=== PATIENT | female | born 1985 | race Caucasian/White ===

== ENCOUNTER 2017-08-22 13:47 | Inpatient (IN) | payer MEDICAID, SELFPAY ==
[2017-08-22 13:48] VITALS: BP 142/98; PULSE 97; RESP 17; TEMP 36.1; O2SAT 98; BMI 26.5
--- NOTE | 2017-08-22 13:52 | ED.RN ---
THIS RN SPOKE TO SYLVIA FROM [employer]. REPORTS TO SYLVIA PT ROOM NUMBER AND REQUEST TO BE SEEN FOR [employer] [facility].
[2017-08-22] MEDS: proMETHazine 25 MG/ML Syringe 12.5 MG IV (15:44)
[2017-08-22] MEDS: LORazepam 2 MG/ML Syringe 1 MG IV (15:44)
[2017-08-22] MEDS: 0.9% Normal Saline 1,000 ML 1000 ML IV (15:44)
[2017-08-22 15:47] VITALS: BP 134/97; PULSE 62; RESP 16; O2SAT 99
[2017-08-22 15:47] LABS: Absolute Lymphocyte Count 2.01 X10^3/ul (0.83-4.51); Absolute Neutrophil Count 5.8 X10^3/uL (2.0-7.7); Basophil# 0.02 X10^3/uL; Basophil% 0.2 % (0-1); Eosinophils% 1.2 % (0-5); Hematocrit 42.1 % (37-47); Hemoglobin 13.7 g/dl (12.0-15.0); Lymphocyte # 2.01 X10^3/ul (4.0); Lymphocyte % 23.7 % (19-41); Mean Corp Hgb Conc 32.5 g/gl (32-36); Mean Corpuscular Hgb 28.7 pg (27.0-32.0); Mean Corpuscular Volume 88.1 fL (81-99); Mean Platelet Vol. 11.3 fl (6.2-12.0); Monocyte# 0.55 X10^3/uL; Monocyte% 6.5 % (0-10); Neutrophil # 5.78 X10^3/uL (2.7-7.7); Neutrophil % 68.3 % (47-70); Platelet Count 219 K/mm3 (150-450); RBC Distribution Width CV 14.2 % (11.6-14.6); RBC Distribution Width SD 45.8 fl (35.1-43.9); Red Blood Count 4.78 M/mm3 (4.2-5.4); White Blood Count 8.5 K/mm3 (4.4-11.0)
[2017-08-22 15:49] LABS: POSITIVE COUNT NO; POSITIVE DIFFERENTIAL NO; POSITIVE MORPHOLOGY NO
[2017-08-22 16:03] LABS: AST(SGOT) 55 U/L (15-37); Alanine Aminotransfer ALT/SGPT 102 U/L (13-56); Albumin, Serum 3.1 g/dL (3.2-5.0); Alkaline Phosphatase 110 U/L (45-117); Anion Gap 3 (5-15); BUN 14 mg/dL (7-18); BUN/Creat Ratio 20.4 RATIO (10-20); Bilirubin, Direct 0.07 mg/dL (0.00-0.30); Calcium,Total 8.7 mg/dL (8.5-10.1); Chloride 105 mmol/L (98-107); Creatinine, Serum 0.68 mg/dL (0.55-1.02); EST Glomerular Filtration Rate 105 mL/min (>60); Est Glom Filt Rate - Afr Amer 127 mL/min (>60); Estimated Creatinine Clearance 110.16 ml/min; Globulin 4.7 g/dL (2.2-4.2); Glucose 83 mg/dL (74-106); Potassium 4.4 mmol/L (3.5-5.1); Protein, Total 7.8 g/dL (6.4-8.2); Sodium Level 138 mmol/L (136-145)
[2017-08-22 16:07] VITALS: BMI 26.5
[2017-08-22 16:10] LABS: Alcohol, Blood (Medical)-Serum < 3.0 mg/dL
[2017-08-22 16:17] LABS: Pregnancy, Serum, hCG Quali. NEGATIVE Negative (0-9 Nonpreg)
--- NOTE | 2017-08-22 16:35 | ED.VISSUMM ---
- ER Visit Summary Date of Service: 08/22/17 Chief Complaint: Requesting detox from heroin, meth, and alcohol History of Present Illness: The patient is a 32 F who is requesting detox of heroin, meth, and alcohol. She states that she uses meth every day and her last use was 2 days ago. She used heroin most days and her last use was 4 days ago. She uses alcohol couple days a week and her last use was 4 days ago. She reports nausea, vomiting, diarrhea. She feels chills and restless. She denies any prior seizures from alcohol withdrawal. Physical Examination: Vital signs are unremarkable. Head neck examination is normal. Heart is regular rate and rhythm. Lung sounds are clear. Abdomen is soft nontender. Hypoactive bowel sounds are present. Patient does appear anxious. She is rocking her leg side to side has trouble sitting still. No significant tremor of her hands is noted at this time. Test Results: CBC and chemistry studies are unremarkable. LFTs are significant for an ALT 102 and an AST of 55. EtOH is less than 3. test is negative. Emergency Department Course and Treatment: Patient was very difficult IV access and IV therapy was able to place a midline in the left upper arm. She was seen by Sage Rosa here in the emergency room. They state that she does not currently have active insurance. They requested that we admit her to the hospital for alcohol withdrawal and they will get Medicaid retroactively to cover her drug and alcohol detox. I spoke with the hospitalist. Treatment Plan: [] Disposition: Admit Impression: 1. Alcohol withdrawal 2. Withdrawal from heroin and meth This note was generated with [employer] dictation software. It may contain incorrect words, spelling, and punctuation that were not noted in review of the chart prior to signing ED Disposition - Plan for ED Patient: Chief Complaint: Subst Abuse Referrals: Moon Gordon, [id number]-C [Primary Care Provider] -
--- NOTE | 2017-08-22 16:49 | PCM.HP.STD ---
Problem List (1) Alcohol withdrawal Status: Acute Qualifiers: Complication of substance-induced condition: with unspecified complication Qualified Code(s): F10.239 - Alcohol dependence with withdrawal, unspecified Comment: Nausea and emesis, shakiness (2) Polysubstance abuse Status: Chronic (3) Tobacco dependence Status: Chronic History of Present Illness Date of Admission: 08/22/17 Chief Complaint: Alcohol withdrawal symptoms The patient is a 32 year old F who presented to emergency department requesting emergency detoxification for alcohol withdrawal symptoms. The patient reports heavy use of alcohol over the past year, daily use to include a bottle of wine in the morning, further alcohol during the day. Her last drink was 2 days ago. Symptoms include nausea, shaking, vomiting. Patient endorses polysubstance abuse to include heroin several days out of the week, last 3 days ago, and methamphetamine daily. She endorses some erratic behaviors secondary to methamphetamine. She smokes approximately a pack a day. The patient endorses injection and snorting heroin, sometimes shares needles. She has had no prior HIV or hepatitis testing. The patient is agreeable to HIV and hepatitis testing. The patient reports occasional bright red blood per rectum, and occasional epigastric abdominal pain, last menstrual period was 3 days ago. The patient is single, mother of 2 children ages 6 and 4. The children are currently with her parents. She is unemployed. Patient had prior detoxification for EtOH/heroin 2 years ago at [facility]. She reports no regular aftercare services. Required placement of midline IV secondary to difficult stick. ED evaluation: Afebrile, heart rate 97, blood pressure 142/98, respirations 17, 98% room air CBC unrevealing with normal platelet count, normal hemoglobin, MCV 88 Chemistries are pertinent for encephalitis, AST 55, ALT 102, albumin 3.1, serum negative Every hour level less than 3 ED course: She received 1 L bolus, followed by infusion 150 ML's per hour, Phenergan 12.5 mg IV, and lorazepam 1 mg IV, and is feeling much more comfortable. Patient will be admitted for continuous management of alcohol withdrawal. [] Past Medical History Past Medical History (Chronic Problems): Chronic Problems Polysubstance abuse (Chronic) Tobacco dependence (Chronic) Allergies No Known Allergies Allergy (Verified 08/22/17 13:47) Home Medications: Ambulatory Orders Medication Instructions Recorded NK [NK] 08/22/17 Surgical History: no surgical history Psychiatric History: No pertinent psych hx RECREATION ACTIVITIES COORDINATOR History: No pertinent RECREATION ACTIVITIES COORDINATOR history Smoking Status: Current every day smoker - *Family History Maternal History Items: No pertinent history Paternal History Items: No pertinent history Review of Systems Comment: As per HPI, complains of nausea, jitteriness, anxiety, no fevers chills current GI or complaints, does note occasional left upper quadrant discomfort and occasional blood in stool VTE Information - Inpt Only VTE Present on Admission: No VTE Mechan Device Prophylaxis: SCD's VTE Pharm Prophylaxis ordered?: No Reason prophylaxis not ordered:: Medical Contraindication - low risk patient Patient Problems: Active and Suspected Problems Alcohol withdrawal (Acute) Nausea and emesis, shakiness Subjective: Pleasant patient in no acute distress, feeling improved after ED therapies Objective: Toxic appearing female, alert and oriented ?3 - Physical Exam General: Alert, Oriented x3 HEENT: PERRLA, EOMI, - - No jaundice Oral: Moist Mucosa Neck: Supple, No JVD, Negative Carotid Bruits Lungs: Clear to auscultation Cardiovascular: Regular rate, Regular Rhythm, Normal S1, Normal S2 Abdomen: Bowel Sounds Present, Soft, - - Minimal left upper quadrant tenderness no rebound or guarding Extremities: No edema, - - palpable needle tracts bilateral antecubital, no abscesses Musculoskeletal: No Muscle Wasting Lymphatic: No Cervical, Supraclavicular, or Inguinal Adenopathy Neurological: - - nonfocal Psych/Mental Status: Appropriate Vital Signs Temp Pulse Resp BP Pulse Ox 96.9 F L 62 16 134/97 H 99 08/22/17 13:48 08/22/17 15:47 08/22/17 15:47 08/22/17 15:47 08/22/17 15:47 Oxygen Delivery Method Room Air Weight: 164 lb 7.437 oz Body Mass Index (BMI) 26.5 Laboratory Tests Past 24 Hrs 08/22/17 08/22/17 08/22/17 15:30 15:30 15:30 WBC 8.5 RBC 4.78 Hgb 13.7 Hct 42.1 MCV 88.1 MCH 28.7 MCHC 32.5 RDW 14.2 RDW Differential 45.8 H Plt Count 219 MPV 11.3 Immature Gran % (Auto) 0.100 Neut % (Auto) 68.3 Lymph % (Auto) 23.7 Moca % (Auto) 6.5 Eos % (Auto) 1.2 Baso % (Auto) 0.2 Absolute Neuts (auto) 5.8 Absolute Lymphs (auto) 2.01 Total Counted Not Reportable Sodium 138 Potassium 4.4 Chloride 105 Carbon Dioxide 30.0 Anion Gap 3 L BUN 14 Creatinine 0.68 Estim Creat Clear Calc 110.16 Est GFR (MDRD) Af Amer 127 Est GFR (MDRD) Non-Af 105 BUN/Creatinine Ratio 20.4 H Glucose 83 Calcium 8.7 Total Bilirubin 0.30 Direct Bilirubin 0.07 AST 55 H ALT 102 H Alkaline Phosphatase 110 Total Protein 7.8 Albumin 3.1 L Globulin 4.7 H Serum , Qual Ethyl Alcohol < 3.0 08/22/17 15:30 WBC RBC Hgb Hct MCV MCH MCHC RDW RDW Differential Plt Count MPV Immature Gran % (Auto) Neut % (Auto) Lymph % (Auto) Moca % (Auto) Eos % (Auto) Baso % (Auto) Absolute Neuts (auto) Absolute Lymphs (auto) Total Counted Sodium Potassium Chloride Carbon Dioxide Anion Gap BUN Creatinine Estim Creat Clear Calc Est GFR (MDRD) Af Amer Est GFR (MDRD) Non-Af BUN/Creatinine Ratio Glucose Calcium Total Bilirubin Direct Bilirubin AST ALT Alkaline Phosphatase Total Protein Albumin Globulin Serum , Qual NEGATIVE Ethyl Alcohol Assessment/Plan Active and Suspected Problems Alcohol withdrawal (Acute) Nausea and emesis, shakiness 32-year-old patient with history of polysubstance abuse presents with acute alcohol withdrawal. 1. Alcohol dependence with acute withdrawal 2. Polysubstance use, last heroin 3 days ago, daily methamphetamine 3. Transaminitis 4. Occasional bright red blood per rectum, occasional left upper quadrant discomfort PLAN: Admit Medical stabilization protocol as per orders Supportive medical care IV fluids Regular diet Laboratories for hepatitis B, C, HIV - patient agreeable to same PPI Consultation to [facility] staff for supportive care Right upper quadrant ultrasound Repeat chemistries in a.m. Nicotine patch 14 mg daily
[2017-08-22] MEDS: 0.9% Normal Saline 1,000 ML 150 ML IV (16:52)
[2017-08-22 17:20] VITALS: BP 136/96; PULSE 109; RESP 18; O2SAT 97
[2017-08-22 17:29] LABS: Amphetamine Urine VISTA POSITIVE (<1000 ng/mL); Barbiturate Urine VISTA NEGATIVE (< 200 ng/mL); Benzodiazepine Urine VISTA NEGATIVE (< 200 ng/mL); Cocaine Urine VISTA NEGATIVE (< 300 ng/mL); Ecstacy Urine VISTA NEGATIVE (< 500 ng/mL); Methadone Urine VISTA NEGATIVE (< 300 ng/mL); PCP Urine VISTA NEGATIVE (< 25 ng/mL); THC Urine VISTA POSITIVE (< 50 ng/mL); Vista UDS pH Range 6
[2017-08-22 18:01] LABS: Internal QC Validated? YES +Cl - CLEAR BKGD; Pregnancy, Urine Negative Negative
[2017-08-22 18:13] VITALS: BMI 28.0
[2017-08-22 18:18] VITALS: BP 134/76; PULSE 68; RESP 18; TEMP 36.6
[2017-08-22] MEDS: Dicyclomine 10 MG Capsule 20 MG PO (18:29)
[2017-08-22] MEDS: chlordiazePOXIDE 25 MG Capsule PO (18:29)
[2017-08-22] MEDS: Methocarbamol 750 MG Tablet PO (18:29)
[2017-08-22] MEDS: Pantoprazole Sodium 40 MG Tablet PO (18:29)
[2017-08-22] MEDS: hydrOXYzine PAM 25 MG Capsule 50 MG PO (18:29)
[2017-08-22] MEDS: QUEtiapine 25 MG Tablet PO (18:29)
[2017-08-22] MEDS: cloNIDine HCl 0.1 MG Tablet PO ×2 (18:29→21:12)
[2017-08-22 20:22] LABS: HIV - WCH Non-Reactive (Nonreactive)
[2017-08-22] MEDS: Buprenorphine HCl 2 MG TAB.SUBL SL (21:12)
[2017-08-22 22:00] VITALS: RESP 16
[2017-08-23] VITALS (8 sets, daily range): BP systolic 91–109; BP diastolic 42–64; PULSE 67–88; RESP 16–18; TEMP 36.3–36.9; O2SAT 98
[2017-08-23] MEDS: cloNIDine HCl 0.1 MG Tablet PO ×4 (00:50→21:53)
[2017-08-23] MEDS: Pramipexole Di-HCl 0.25 MG Tablet PO ×2 (00:50→08:39)
[2017-08-23] MEDS: chlordiazePOXIDE 25 MG Capsule PO ×4 (00:50→20:24)
[2017-08-23] MEDS: 0.9% Normal Saline 1,000 ML 100 ML IV ×3 (00:51→21:47)
[2017-08-23] MEDS: Buprenorphine HCl 2 MG TAB.SUBL SL ×3 (06:16→21:47)
--- NOTE | 2017-08-23 07:30 | US_ITS ---
STUDY: ABDOMINAL ULTRASOUND - RIGHT UPPER QUADRANT REASON FOR VISIT: Female, 32 years old. Abnormal liver enzymes. TECHNIQUE: Ultrasound evaluation of the right upper quadrant was performed with real-time and static barnett-scale imaging. TECHNICAL QUALITY: Adequate. COMPARISON: Comparison is made with prior study dated 2015. FINDINGS: Liver: The liver measures 15.0 cm. There is increased echogenicity consistent with fatty infiltration. The bile ducts are within normal limits. There is hepatic color flow. The direction of portal flow is hepatopetal. There is no demonstrated mass lesion. Gallbladder: Normal distended gallbladder. The gallbladder wall measures 2.8 mm. There is a negative sonographic Ramírez's sign. There is no pericholecystic fluid. There are no gallstones. Common Bile Duct (C.B.D.): The common bile duct measures 4.8 mm. Pancreas: Normal size of the head, body and tail of the pancreas. There is normal echogenicity of the pancreas. There is no demonstrated pancreatic mass or cyst. Right Kidney: Normal size of the right kidney. The right kidney measures 11.7 cm x 5.3 cm x 4.8 cm. Normal renal cortex. The right cortex measures 1.7 cm. There is no demonstrated renal mass or cyst. There is no right hydronephrosis. US/Liver IMPRESSION: Fatty infiltration of the liver. Electronically Signed: Mejia Beaulieu MD at 8:51 EDT Tel [phone], Service support ,
--- NOTE | 2017-08-23 07:53 | NURSING ---
Pt taken off of floor with STOCK WORKER to get Liver US
[2017-08-23] MEDS: Pantoprazole Sodium 40 MG Tablet PO (08:34)
[2017-08-23] MEDS: QUEtiapine 25 MG Tablet PO (08:39)
[2017-08-23] MEDS: hydrOXYzine PAM 25 MG Capsule 50 MG PO ×2 (08:39→21:56)
--- NOTE | 2017-08-23 10:11 | PN_ITS ---
<Sonia Ward - Last Filed: 08/23/17 10:11> Patient Problems: Active and Suspected Problems Alcohol withdrawal (Acute) Nausea and emesis, shakiness Subjective: Patient seen and examined. Complains of diarrhea. Denies current nausea, vomiting. Complains of restlessness. Denies other complaints. - Physical Exam General: Alert, Oriented x3, Cooperative, No apparent distress HEENT: Atraumatic, PERRLA, EOMI, Normocephalic Neck: Supple, No JVD, Negative Carotid Bruits Lungs: Clear to auscultation, Normal air movement Cardiovascular: Regular rate, Regular Rhythm, Normal S1, Normal S2, No murmurs Abdomen: Bowel Sounds Present, Soft, Non Tender, Non-Distended Extremities: No clubbing, No cyanosis, No edema, Capillary Refill Less than 3 Seconds Skin: No rashes, No breakdown Musculoskeletal: No Tenderness to Palpation of Joints or Extremities Neurological: Cranial nerves II-XII grossly intact Psych/Mental Status: Normal Affect, Appropriate Vital Signs Temp Pulse Resp BP Pulse Ox 97.6 F L 69 18 91/43 L 98 08/23/17 08:30 08/23/17 08:30 08/23/17 08:30 08/23/17 08:30 08/23/17 05:00 Oxygen Delivery Method Room Air Weight: 78.925 kg Body Mass Index (BMI) 28.0 Intake and Output for Last 24 Hours 08/21/17 08/22/17 08/23/17 23:59 23:59 23:59 Intake Total 2207 / 2207 Balance 2207 / 2207 Laboratory Tests Past 24 Hrs 08/22/17 08/23/17 19:30 06:18 Sodium Cancelled Potassium Cancelled Chloride Cancelled Carbon Dioxide Cancelled Anion Gap Cancelled BUN Cancelled Creatinine Cancelled Estim Creat Clear Calc Cancelled Est GFR (MDRD) Af Amer Cancelled Est GFR (MDRD) Non-Af Cancelled BUN/Creatinine Ratio Cancelled Glucose Cancelled Calcium Cancelled Total Bilirubin Cancelled AST Cancelled ALT Cancelled Alkaline Phosphatase Cancelled Total Protein Cancelled Albumin Cancelled Globulin Cancelled Albumin/Globulin Ratio Cancelled Hepatitis A IgM Ab Pending Hep Bs Antigen Pending Hep B Core IgM Ab Pending Hepatitis C Ab (EIA) Pending Medical Necessity - Tobacco Use Smoking Status: Current every day smoker Assessment/Plan Active and Suspected Problems Alcohol withdrawal (Acute) Nausea and emesis, shakiness 1. Acute opiate withdrawal-medical stabilization per protocol. Tox screen positive for cannabinoids, amphetamines and opiates. Outpatient follow-up at discharge per [facility]. Patient is stable. 2. Acute alcohol withdrawal-medical stabilization per protocol. 3. Tobacco dependence-encourage smoking cessation. Nicotine replacement patch. 4. Alcoholic hepatitis-liver panel elevated on admission. Repeat pending. Hepatitis panel pending. Liver ultrasound showed fatty infiltration of the liver. 5. Previously reported bright red blood per rectum-denies current. Hemoglobin stable. Continue to monitor. DVT prophylaxis-not indicated due to low risk. This patient was seen by TARA Connor under the supervision of Dr. Gloria. <Sasha Gloria - Last Filed: 08/23/17 10:46> - Physical Exam Vital Signs Temp Pulse Resp BP Pulse Ox 97.6 F L 69 18 91/43 L 98 08/23/17 08:30 08/23/17 08:30 08/23/17 08:30 08/23/17 08:30 08/23/17 05:00 Oxygen Delivery Method Room Air Weight: 78.925 kg Body Mass Index (BMI) 28.0 Intake and Output for Last 24 Hours 08/21/17 08/22/17 08/23/17 23:59 23:59 23:59 Intake Total 2207 / 2207 Balance 2207 / 2207 Laboratory Tests Past 24 Hrs 08/22/17 08/23/17 08/23/17 19:30 06:18 10:06 Sodium Cancelled Pending Potassium Cancelled Pending Chloride Cancelled Pending Carbon Dioxide Cancelled Pending Anion Gap Cancelled Pending BUN Cancelled Pending Creatinine Cancelled Pending Estim Creat Clear Calc Cancelled Est GFR (MDRD) Af Amer Cancelled Pending Est GFR (MDRD) Non-Af Cancelled Pending BUN/Creatinine Ratio Cancelled Pending Glucose Cancelled Pending Calcium Cancelled Pending Total Bilirubin Cancelled Pending AST Cancelled Pending ALT Cancelled Pending Alkaline Phosphatase Cancelled Pending Total Protein Cancelled Pending Albumin Cancelled Pending Globulin Cancelled Albumin/Globulin Ratio Cancelled Hepatitis A IgM Ab Pending Hep Bs Antigen Pending Hep B Core IgM Ab Pending Hepatitis C Ab (EIA) Pending Assessment/Plan Patient was seen and examined independently. I agree with the interval history , physical exam and assessment and plan as documented by nurse practitioner, Sonia Ward. Patient complains of feeling hot and cold, has the eighth to move around, feels anxious. Started on nicotine replacement patch with 40 mg. Patient smokes more than 1 pack a day of cigarettes. Will increase nicotine to 21 mg. Patient's vitals are stable, will continue to monitor per [facility] protocol. Code Visit Inpatient E&M: 40108 Subs Hosp L2
[2017-08-23 10:46] LABS: ALB/GLOB Ratio 0.7 RATIO (0.9-2.4); AST(SGOT) 53 U/L (15-37); Alanine Aminotransfer ALT/SGPT 92 U/L (13-56); Albumin, Serum 2.5 g/dL (3.2-5.0); Alkaline Phosphatase 102 U/L (45-117); Anion Gap 6 (5-15); BUN 10 mg/dL (7-18); BUN/Creat Ratio 16.4 RATIO (10-20); Calcium,Total 8.1 mg/dL (8.5-10.1); Chloride 112 mmol/L (98-107); Creatinine, Serum 0.61 mg/dL (0.55-1.02); EST Glomerular Filtration Rate 120 mL/min (>60); Est Glom Filt Rate - Afr Amer 145 mL/min (>60); Globulin 3.8 g/dL (2.2-4.2); Glucose 88 mg/dL (74-106); Protein, Total 6.3 g/dL (6.4-8.2); Sodium Level 143 mmol/L (136-145)
[2017-08-24 02:58] VITALS: BP 112/71; PULSE 71; RESP 16; TEMP 36.6
[2017-08-24] MEDS: chlordiazePOXIDE 25 MG Capsule PO ×3 (03:00→19:46)
[2017-08-24] MEDS: cloNIDine HCl 0.1 MG Tablet PO ×5 (03:00→21:53)
[2017-08-24] MEDS: Pramipexole Di-HCl 0.25 MG Tablet PO (03:06)
[2017-08-24] MEDS: Ondansetron 4 MG/2 ML Vial IV (03:06)
[2017-08-24] MEDS: Buprenorphine HCl 2 MG TAB.SUBL SL ×2 (05:20→12:07)
[2017-08-24 07:07] LABS: HEPATITIS B SURFACE AG Negative (Negative); Hepatitis A IgM Antibody Negative (Negative); Hepatitis B Core AB IgM Negative (Negative)
--- NOTE | 2017-08-24 07:34 | PN_ITS ---
Patient Problems: Active and Suspected Problems Alcohol withdrawal (Acute) Nausea and emesis, shakiness Subjective: Patient was seen and examined. Has hot and cold symptoms. Denies any chest pain but admits to some dizziness. IV fluids are running. Denies any abdominal pain no diarrhea. Objective: Physical Exam General: Alert, Oriented x3, Cooperative, No apparent distress HEENT: Atraumatic, PERRLA, EOMI, Normocephalic Neck: Supple, No JVD, Negative Carotid Bruits Lungs: Clear to auscultation, Normal air movement Cardiovascular: Regular rate, Regular Rhythm, Normal S1, Normal S2, No murmurs Abdomen: Bowel Sounds Present, Soft, Non Tender, Non-Distended Extremities: No clubbing, No cyanosis, No edema, Capillary Refill Less than 3 Seconds Skin: No rashes, No breakdown Musculoskeletal: No Tenderness to Palpation of Joints or Extremities Neurological: Cranial nerves II-XII grossly intact Psych/Mental Status: Normal Affect, Appropriate Vitals/I&O's: Vital Signs Temp Pulse Resp BP Pulse Ox 97.9 F 71 16 112/71 98 08/24/17 02:58 08/24/17 02:58 08/24/17 02:58 08/24/17 02:58 08/23/17 05:00 Oxygen Delivery Method Room Air Weight: 78.9 kg Body Mass Index (BMI) 28.0 Intake and Output for Last 24 Hours 08/22/17 08/23/17 08/24/17 23:59 23:59 23:59 Intake Total 4325 / 4325 2868 / 2868 Balance 4325 / 4325 2868 / 2868 Laboratory Results 08/23/17 10:06: Sodium 143, Potassium 4.0, Chloride 112 H, Carbon Dioxide 25.0, Anion Gap 6, BUN 10, Creatinine 0.61, Estim Creat Clear Calc 122.80, Est GFR ( MDRD) Af Amer 145, Est GFR (MDRD) Non-Af 120, BUN/Creatinine Ratio 16.4, Glucose 88, Calcium 8.1 L, Total Bilirubin 0.40, AST 53 H, ALT 92 H, Alkaline Phosphatase 102, Total Protein 6.3 L, Albumin 2.5 L, Globulin 3.8, Albumin/ Globulin Ratio 0.7 L Current Medications Buprenorphine HCl (Buprenorphine Hcl) 2 mg SL Q8H [facility] PRN Reason: Taper Stop: 08/26/17 00:59 Last Admin: 08/24/17 05:20 Dose: 2 mg Chlordiazepoxide (Librium) 50 mg PO Q8H [facility] PRN Reason: Taper Stop: 08/25/17 19:59 Last Admin: 08/24/17 03:00 Dose: 50 mg Clonidine (Catapres) 0.1 mg PO Q4 [facility] Last Admin: 08/24/17 05:19 Dose: 0.1 mg Dicyclomine HCl (Bentyl) 20 mg PO Q6H PRN PRN PRN Reason: abdominal discomfort Last Admin: 08/22/17 18:29 Dose: 20 mg Hydroxyzine Pamoate (Vistaril Pamoate Capsule) 50 mg PO Q6H PRN PRN PRN Reason: Mild Anxiety (score 1/3) Last Admin: 08/23/17 21:56 Dose: 50 mg Sodium Chloride () 1,000 mls @ 100 mls/hr IV .Q10H [facility] Last Admin: 08/23/17 21:47 Dose: 100 mls/hr Thiamine HCl 200 mg/ Sodium (Chloride) 52 mls @ 200 mls/hr IV DAILY [facility] Last Admin: 08/23/17 09:04 Dose: 200 mls/hr Magnesium Hydroxide (Milk Of Magnesia) 30 ml PO DAILY PRN PRN PRN Reason: Constipation Methocarbamol (Methocarbamol) 750 mg PO Q6H PRN PRN PRN Reason: Muscle Aches Last Admin: 08/22/17 18:29 Dose: 750 mg Nicotine (Nicoderm Cq (Pbkc)) 21 mg TRANSDERM. DAILY [facility] Last Admin: 08/23/17 11:03 Dose: Not Given Ondansetron HCl (Zofran) 4 mg IV Q6 PRN PRN Reason: NAUSEA Last Admin: 08/24/17 03:06 Dose: 4 mg Pantoprazole Sodium (Protonix) 40 mg PO DAILY [facility] Last Admin: 08/23/17 08:34 Dose: 40 mg Pramipexole Dihydrochloride (Mirapex) 0.25 mg PO Q12H PRN PRN PRN Reason: Restless legs Last Admin: 08/24/17 03:06 Dose: 0.25 mg Promethazine HCl (Phenergan Iv) 12.5 mg IV Q6H PRN PRN PRN Reason: NAUSEA/VOMITING Quetiapine Fumarate (Seroquel) 25 mg PO Q6H PRN PRN PRN Reason: Moderate Anxiety (score 2/3) Last Admin: 08/23/17 08:39 Dose: 25 mg Sodium Chloride () 10 - 20 ml IV UD PRN PRN Reason: Midline Flush Medical Necessity - Tobacco Use Smoking Status: Current every day smoker Tobacco Use: Cigarettes Assessment/Plan Active and Suspected Problems Alcohol withdrawal (Acute) Nausea and emesis, shakiness 32-year-old female with past medical history of alcohol, nicotine, heroine and methamphetamine use disorders comes in with withdrawal symptoms and is being managed on the [facility] program. 1. Acute opiate withdrawal-medical stabilization per protocol. Tox screen positive for cannabinoids, amphetamines and opiates. Outpatient follow-up at discharge per [facility] [employer]. Patient is doing very well. 2. Acute alcohol withdrawal, stable, ongoing medical stabilization per protocol. 3. Tobacco dependence, encourage smoking cessation, on Nicotine replacement patch. 4. Alcoholic hepatitis, LFTs are trending down, hepatitis C positive, needs to follow-up in the outpatient, HIV negative, hepatitis B negative, liver ultrasound showed fatty infiltration of the liver. Advised to quit drinking alcohol. 5. Previously reported bright red blood per rectum-none current, stable Hb 6. DVT prophylaxis-not indicated due to low risk. Code Visit Inpatient E&M: 56496 Subs Hosp L2
[2017-08-24] MEDS: 0.9% Normal Saline 1,000 ML 100 ML IV ×2 (08:10→17:36)
[2017-08-24 08:13] VITALS: BP 96/55; PULSE 66; RESP 16; TEMP 36.6
[2017-08-24 08:14] LABS: Hep C Antibodies >11.0 s/co ratio (0.0-0.9)
[2017-08-24] MEDS: Loratadine 10 MG Tablet PO (10:08)
[2017-08-24] MEDS: Pantoprazole Sodium 40 MG Tablet PO (10:09)
[2017-08-24 15:08] VITALS: BP 96/51; PULSE 65; RESP 16; TEMP 36.8
--- NOTE | 2017-08-24 16:54 | CHAPLAIN ---
Type of Pastoral Visit ___ Initial Visit ___ Follow-up Visit ___ On-call Visit ___ General Patient Visit ___ Spiritual Assessment ___ Family Conference ___ Bereavement ___ Rapid Response ___ Code Blue _x__ Other (describe below) Pastoral Care Referral From ___ Patient ___ Family ___ Nurse ___ Physician ___ [employer] ___ Child Welfare Consultant ___ Other (describe below) Sacrament/Intervention ___ Active listening ___ Anointing ___ Alevism ___ Bereavement ___ Communion ___ [place]ia exploration ___ ___ Life review ___ Prayer ___ Reconciliation ___ Sacrament of Sick ___ Supportive presence ___ Wedding ___ Other (describe below) Pastoral Comments offer of support and presence made to patient; pt responds that I am not feeling like I can talk to anyone right now because I've got so much going on in my head; offer made for future support if desired
[2017-08-24 17:30] VITALS: BP 103/69; PULSE 68; RESP 16; TEMP 36.7; O2SAT 100
[2017-08-24 19:40] VITALS: BP 137/57; PULSE 83; RESP 16; TEMP 36.6; O2SAT 100
[2017-08-25 01:46] VITALS: BP 105/60; PULSE 70; RESP 16; TEMP 36.9; O2SAT 100
[2017-08-25] MEDS: Buprenorphine HCl 2 MG TAB.SUBL SL ×2 (01:50→12:43)
[2017-08-25] MEDS: cloNIDine HCl 0.1 MG Tablet PO ×2 (01:50→06:06)
[2017-08-25] MEDS: 0.9% Normal Saline 1,000 ML 100 ML IV (03:21)
--- NOTE | 2017-08-25 07:39 | PCM.DC ---
- Discharge Diagnoses Current Active Problems: Current Active and Chronic Problems Alcohol withdrawal (Acute) Nausea and emesis, shakiness Polysubstance abuse (Chronic) Tobacco dependence (Chronic) Reason(s) for Visit for Discharge Instructions: Polysubstance withdrawal You will use the following diet at home:: Regular Your food should be the consistency of: Regular Your liquids should be the consistency of: Regular/Thin Discharge Activity: Return to Normal Activity Additional Instructions: You are advised to avoid using alcohol, heroin or amphetamines. Allergies/Adverse Reactions: Allergies No Known Allergies Allergy (Verified 08/22/17 13:47) Medications to take at Discharge NK [NK] 08/22/17 Primary Care Physician: Moon Gordon NP-C [Primary Care Provider] - Please follow up with your Primary Care Physician in: within 2 weeks of discharge Proposed Discharge Date: 08/25/17
[2017-08-25 08:29] VITALS: BP 97/54; BP 99/54; BP 99/57; PULSE 68; PULSE 69; PULSE 80
[2017-08-25 08:34] VITALS: BP 99/54; PULSE 80; RESP 16; TEMP 36.6
[2017-08-25] MEDS: chlordiazePOXIDE 25 MG Capsule PO (08:39)
[2017-08-25] MEDS: Pantoprazole Sodium 40 MG Tablet PO (08:42)
[2017-08-25] MEDS: Loratadine 10 MG Tablet PO (08:42)
--- NOTE | 2017-08-25 08:52 | PCM.DC.SUM ---
Discharge Date and Diagnosis - Problem List Patient Problems: Active and Suspected Problems Alcohol withdrawal (Acute) Nausea and emesis, shakiness Date of Admission: 08/22/17 Date of Discharge: 08/25/17 - Primary Discharge Diagnosis Active and Suspected Problems Alcohol withdrawal (Acute) Nausea and emesis, shakiness Acute heroin withdrawal Acute amphetamine withdrawal - Secondary Discharge Diagnosis Chronic Problems Polysubstance abuse (Chronic) Tobacco dependence (Chronic) Hospital Course and Treatment Imaging Results: Clinical Impression(s) from Imaging Studies Liver Ultrasound 08/23/17 07:30 IMPRESSION: Fatty infiltration of the liver. Electronically Signed: Mejia Beaulieu MD at 8:51 EDT Tel [phone], Service support , None Operations: None Procedures: None Summary of Care Provided: 32-year-old female with past medical history of alcohol, nicotine, heroine and methamphetamine use disorders comes in with withdrawal symptoms and managed on the [employer] program. 1. Acute opiate withdrawal-medical stabilization per protocol. Tox screen positive for cannabinoids, amphetamines and opiates. Outpatient follow-up at discharge per [facility] 2. Acute alcohol withdrawal, stable, ongoing medical stabilization per protocol. 3. Tobacco dependence, encourage smoking cessation, on Nicotine replacement patch. 4. Alcoholic hepatitis, LFTs are trending down, hepatitis C positive, needs to follow-up in the outpatient, HIV negative, hepatitis B negative, liver ultrasound showed fatty infiltration of the liver. Advised to quit drinking alcohol. 5. Previously reported bright red blood per rectum-none current, stable Hb Discharge Diet: No Restrictions Discharge Activity: Return to Normal Activity Home Medications: Medications to take at Discharge NK [NK] 08/22/17 Primary Care Physician: Moon Gordon NP-C [Primary Care Provider] - Please follow up with your Primary Care Physician in: within 2 weeks of discharge Disposition: Home Minutes spent on discharge:: 25 Patient Condition:: Stable Medical Necessity - Tobacco Use Smoking Status: Current every day smoker Tobacco Use: Cigarettes Meaningful Use Info Meaningful Use Diagnoses (Choose all that apply): None applicable Code Visit Inpatient E&M: 97538 Disch Hosp
[2017-08-25] MEDS: Sodium Chloride 0.65% 1 SPRAY SPRAY.BTL NASAL (09:58)
[2017-08-25 13:51] VITALS: BP 104/61; PULSE 77; RESP 16; TEMP 36.8
== END 2017-08-25 17:38 | disposition home or self-care (01) | DRG 434 ==
LOC: ED 15:45 → MS2 17:22
PROVIDERS: Admitting Provider Internal Medicine; Emergency Provider Emergency Medicine; Family Provider Nurse Practitioner Family; PCP Nurse Practitioner Family; Visit Provider Internal Medicine
DX: F10.239 Alcohol dependence with withdrawal, unspecified (principal); B19.20 Unspecified viral hepatitis C without hepatic coma; F11.23 Opioid dependence with withdrawal; K70.10 Alcoholic hepatitis without ascites; K70.0 Alcoholic fatty liver; K62.5 Hemorrhage of anus and rectum; F15.23 Other stimulant dependence with withdrawal; Y90.0 Blood alcohol level of less than 20 mg/100 ml; F17.210 Nicotine dependence, cigarettes, uncomplicated; R10.12 Left upper quadrant pain
CPT/HCPCS: 36415; 76705; 80048; 80053; 80074; 80076; 80307; 80320; 81025; 84703; 85025; 86703; 97802; 99283; 99406; J7030; G0480; J2405; J3490

== ENCOUNTER 2018-11-10 17:17 | Inpatient (IN) | payer MEDICAID, SELFPAY ==
[2018-11-10 17:18] VITALS: BP 148/84; PULSE 97; RESP 18; TEMP 35.6; O2SAT 99; BMI 35.6
[2018-11-10] MEDS: proMETHazine 25 MG/ML Syringe 12.5 MG IV (18:39)
[2018-11-10] MEDS: 0.9% Normal Saline 1,000 ML 150 ML IV (18:39)
[2018-11-10 18:47] LABS: Absolute Lymphocyte Count 2.49 X10^3/ul (0.83-4.51); Absolute Neutrophil Count 4.4 X10^3/uL (2.0-7.7); Basophil# 0.02 X10^3/uL; Basophil% 0.3 % (0-1); Eosinophil# 0.15 X10^3/uL; Eosinophils% 1.9 % (0-5); Hematocrit 39.5 % (37-47); Hemoglobin 13.5 g/dl (12.0-15.0); Lymphocyte # 2.49 X10^3/ul (4.0); Lymphocyte % 31.6 % (19-41); Mean Corp Hgb Conc 34.2 g/gl (32-36); Mean Corpuscular Volume 87.8 fL (81-99); Mean Platelet Vol. 12.1 fl (6.2-12.0); Monocyte# 0.77 X10^3/uL; Monocyte% 9.8 % (0-10); Neutrophil # 4.42 X10^3/uL (2.7-7.7); Neutrophil % 56.1 % (47-70); Platelet Count 143 K/mm3 (150-450); RBC Distribution Width CV 13.7 % (11.6-14.6); RBC Distribution Width SD 43.4 fl (35.1-43.9); White Blood Count 7.9 K/mm3 (4.4-11.0)
[2018-11-10 18:50] LABS: POSITIVE COUNT NO; POSITIVE DIFFERENTIAL NO; POSITIVE MORPHOLOGY NO
[2018-11-10 19:01] LABS: AST(SGOT) 49 U/L (15-37); Alanine Aminotransfer ALT/SGPT 90 U/L (13-56); Albumin, Serum 3.2 g/dL (3.2-5.0); Alkaline Phosphatase 78 U/L (45-117); Anion Gap 2 (5-15); BUN 19 mg/dL (7-18); BUN/Creat Ratio 24.8 RATIO (10-20); Bilirubin, Direct 0.14 mg/dL (0.00-0.30); Calcium,Total 8.6 mg/dL (8.5-10.1); Chloride 104 mmol/L (98-107); Creatinine, Serum 0.77 mg/dL (0.55-1.02); EST Glomerular Filtration Rate 91 mL/min (>60); Est Glom Filt Rate - Afr Amer 111 mL/min (>60); Estimated Creatinine Clearance 96.37 ml/min; Globulin 3.8 g/dL (2.2-4.2); Glucose 84 mg/dL (74-106); Potassium 4.3 mmol/L (3.5-5.1); Sodium Level 136 mmol/L (136-145)
[2018-11-10 19:25] VITALS: BMI 35.7
--- NOTE | 2018-11-10 19:46 | ED.DCSUM_ITS ---
- ER Visit Summary Date of Service: 11/10/18 Chief Complaint: Requesting detox History of Present Illness: The patient is a 33 F who is here requesting detox to the [facility] program. She uses heroin, meth, and alcohol and is requesting detox from all. She states she does use heroin daily in IV form and her last use was approximate 26 hours ago. Similar findings from meth. Alcohol she states she is lately been using every day. She drinks whiskey 2 or 3 times a day in a mixed drink. Last use was a couple days ago. Patient was in [facility] in August 2017 and states she was also in a rehab in [facility] in September of this year. She states after the program at [facility] here she had been sober for a year before drinking again. Physical Examination: Vital signs unremarkable. Patient sitting upright in bed. She is anxious and fidgets in her bed. Heart is regular rate and rhythm. Lung sounds clear. Abdomen is soft nontender. Skin examination reveals no focal abscess from prior injections. Neuro exam reveals that she is agitated and anxious. Test Results: CBC and chemistry studies unremarkable. LFTs significant for an ALT of 90 and AST of 49. EtOH is 10. Urinalysis is unremarkable. Urine tox is positive for amphetamines. Emergency Department Course and Treatment: Patient was given IV fluids and Phenergan here. Cina score is 16 and CIWA score is 29. Will speak with hospitalist regarding admission for [facility] protocol. Treatment Plan: [] Disposition: Admit Impression: Alcohol and narcotic withdrawal This note was generated with [employer] dictation software. It may contain incorrect words, spelling, and punctuation that were not noted in review of the chart prior to signing ED Disposition - Plan for ED Patient: Referrals: Moon Gordon, [id number] [Primary Care Provider] -
[2018-11-10 20:13] LABS: Bacteria 0 SEEN /hpf (None Seen); Mucous, Urine 0 SEEN /hpf (<or=2+); Red Blood Cells-Urine 0 SEEN /hpf (0-5)
[2018-11-10 20:33] LABS: Color, Urine Yellow (Yellow); Glucose, Dipstick Normal (Normal); Ketone-Dipstick Negative (Negative); Leukocyte Esterase-Dipstick Negative /ul (Negative); Nitrite-Dipstick Negative (Negative); Occult Blood-Urine Negative /ul (Negative); Protein-Dipstick Negative (Negative); Specific Gravity, Urine 1.015 (1.002-1.030); Urine Bilirubin Dipstick Negative (Negative); Urine Clarity Clear (Clear); Urine Urobilinogen Normal (Normal); Urine pH 6.5 (5.0 - 8.0)
[2018-11-10 20:37] LABS: Squamous Epithelial Cells - UA 5-10 SEEN /hpf (5-10); White Blood Cells 0-5 SEEN /hpf (0-5)
[2018-11-10 20:48] LABS: Amphetamine Urine VISTA POSITIVE (<1000 ng/mL); Barbiturate Urine VISTA NEGATIVE (< 200 ng/mL); Benzodiazepine Urine VISTA NEGATIVE (< 200 ng/mL); Cocaine Urine VISTA NEGATIVE (< 300 ng/mL); Ecstacy Urine VISTA NEGATIVE (< 500 ng/mL); Methadone Urine VISTA NEGATIVE (< 300 ng/mL); PCP Urine VISTA NEGATIVE (< 25 ng/mL); THC Urine VISTA NEGATIVE (< 50 ng/mL); Vista UDS pH Range 6
[2018-11-10] MEDS: LORazepam 2 MG/ML Syringe 1 MG IV (21:51)
[2018-11-10 21:52] VITALS: BP 111/79; PULSE 64; RESP 18
--- NOTE | 2018-11-10 21:59 | HP.PCM_ITS ---
Problem List (1) Alcohol withdrawal Status: Acute Qualifiers: Complication of substance-induced condition: with unspecified complication Qualified Code(s): F10.239 - Alcohol dependence with withdrawal, unspecified Comment: Nausea and emesis, shakiness (2) Polysubstance abuse Status: Acute (3) Tobacco dependence Status: Chronic History of Present Illness Date of Admission: 11/11/18 Chief Complaint: Withdrawal symptoms The patient is a 33 year old F with a significant history of alcohol dependence and abuse; heroine dependence and abuse and other drugs who presented because of withdrawal symptoms. She reports her symptoms as depression; tremors; restlessness; feeling cold; irritability; and nausea without vomiting. Further she has no nausea. Patient reports shooting heroine in her arms. She reports drinking alcohol. A few days ago she attempted to stop her drug habit she tried detoxification with gabapentin; Percocet and Flexeril. Also she reports shooting methamphetamine and using crack and cocaine. Reportedly she been using 3 mixed drinks of alcohol a day. She describes her mixed drink as whiskey mixed with 7-Up or Sprite. Last time she drank was about 2 and half days. Last time he used heroin was about 24 hours prior to presentation. [facility]. Past Medical History Past Medical History (Chronic Problems): Chronic Problems Tobacco dependence (Chronic) Allergies No Known Allergies Allergy (Verified 08/22/17 13:47) Home Medications: Ambulatory Orders Medication Instructions Recorded NK 08/22/17 Surgical History: tonsillectomy, - - 3 C-sections; teeth extraction Psychiatric History: - - Drug use Lives: With Family Smoking Status: Current some day smoker Tobacco Use: Cigarettes, Vapor - *Family History Maternal History Items: Cancer - Breast Paternal History Items: Cancer, Diabetes Review of Systems Constitutional: Reports: Chills. Denies: Fever, Weight Change HEENT: Reports: Head Aches. Denies: Sinus Congestion, Sinus Drainage Cardiovascular: Denies: Chest Pain, Palpitations Respiratory: Denies: Cough, Shortness of breath at rest, Sputum production Gastrointestinal: Reports: Nausea. Denies: Abdominal Pain, Vomiting Genitourinary: Denies: Dysuria Musculoskeletal: Reports: Muscle pain. Denies: Joint Pain, Joint Tenderness Skin: Denies: Rash, Wounds Neurological: Denies: Numbness, Tingling, Focal weakness Psychiatric: Reports: Depression. Denies: Homicidal Ideations, Suicidal Ideations Hematologic/ Lymphatic: Denies: Easy Bruising, Easy Bleeding VTE Information - Inpt Only VTE Present on Admission: No VTE Mechan Device Prophylaxis: None VTE Pharm Prophylaxis ordered?: No Reason prophylaxis not ordered:: Treatment Not Indicated - Low risk, not ind icated - Physical Exam General: Alert, Oriented x3, Cooperative, - - Noted to be moving legs in the bed. HEENT: Atraumatic, PERRLA, EOMI, Normocephalic Neck: Supple, No JVD, Negative Carotid Bruits Lungs: Clear to auscultation, Normal air movement Cardiovascular: Regular rate, No murmurs Abdomen: Bowel Sounds Present, Soft, Non Tender Extremities: No edema, Capillary Refill Less than 3 Seconds Skin: No rashes, No breakdown Musculoskeletal: No Tenderness to Palpation of Joints or Extremities Neurological: Cranial nerves II-XII grossly intact Psych/Mental Status: Anxious Vital Signs Temp Pulse Resp BP Pulse Ox 96.1 F L 64 18 111/79 99 11/10/18 17:18 11/10/18 21:52 11/10/18 21:52 11/10/18 21:52 11/10/18 17:18 Oxygen Delivery Method Room Air Weight: 100.2 kg Body Mass Index (BMI) 35.6 Laboratory Tests Past 24 Hrs 11/10/18 11/10/18 11/10/18 18:32 18:32 18:32 WBC 7.9 RBC 4.50 Hgb 13.5 Hct 39.5 MCV 87.8 MCH 30.0 MCHC 34.2 RDW 13.7 RDW Differential 43.4 Plt Count 143 L MPV 12.1 H Immature Gran % (Auto) 0.300 Neut % (Auto) 56.1 Lymph % (Auto) 31.6 [place] % (Auto) 9.8 Eos % (Auto) 1.9 Baso % (Auto) 0.3 Absolute Neuts (auto) 4.4 Absolute Lymphs (auto) 2.49 Total Counted Not Reportable Sodium 136 Potassium 4.3 Chloride 104 Carbon Dioxide 30.0 Anion Gap 2 L BUN 19 H Creatinine 0.77 Estim Creat Clear Calc 96.37 Est GFR (MDRD) Af Amer 111 Est GFR (MDRD) Non-Af 91 BUN/Creatinine Ratio 24.8 H Glucose 84 Calcium 8.6 Total Bilirubin 0.40 Direct Bilirubin 0.14 AST 49 H ALT 90 H Alkaline Phosphatase 78 Total Protein 7.0 Albumin 3.2 Globulin 3.8 Urine Color Urine Clarity Urine pH Ur Specific [place] Urine Protein Urine Glucose (UA) Urine Ketones Urine Occult Blood Urine Nitrite Urine Bilirubin Urine Urobilinogen Ur Leukocyte Esterase Urine RBC Urine WBC Ur Squamous Epith Cells Urine Bacteria Urine Mucus Urine Opiates Screen Urine Methadone Screen Ur Barbiturates Screen Ur Phencyclidine Scrn Ur Amphetamines Screen U Methamphetamin-MDMA U Benzodiazepines Scrn Urine Cocaine Screen U Cannabinoids Screen Ur Drug Screen Comment Ethyl Alcohol 10.0 11/10/18 11/10/18 19:35 19:35 WBC RBC Hgb Hct MCV MCH MCHC RDW RDW Differential Plt Count MPV Immature Gran % (Auto) Neut % (Auto) Lymph % (Auto) [place] % (Auto) Eos % (Auto) Baso % (Auto) Absolute Neuts (auto) Absolute Lymphs (auto) Total Counted Sodium Potassium Chloride Carbon Dioxide Anion Gap BUN Creatinine Estim Creat Clear Calc Est GFR (MDRD) Af Amer Est GFR (MDRD) Non-Af BUN/Creatinine Ratio Glucose Calcium Total Bilirubin Direct Bilirubin AST ALT Alkaline Phosphatase Total Protein Albumin Globulin Urine Color Yellow Urine Clarity Clear Urine pH 6.5 Ur Specific [place] 1.015 Urine Protein Negative Urine Glucose (UA) Normal Urine Ketones Negative Urine Occult Blood Negative Urine Nitrite Negative Urine Bilirubin Negative Urine Urobilinogen Normal Ur Leukocyte Esterase Negative Urine RBC 0 SEEN Urine WBC 0-5 SEEN Ur Squamous Epith Cells 5-10 SEEN Urine Bacteria 0 SEEN Urine Mucus 0 SEEN Urine Opiates Screen NEGATIVE Urine Methadone Screen NEGATIVE Ur Barbiturates Screen NEGATIVE Ur Phencyclidine Scrn NEGATIVE Ur Amphetamines Screen POSITIVE H U Methamphetamin-MDMA NEGATIVE U Benzodiazepines Scrn NEGATIVE Urine Cocaine Screen NEGATIVE U Cannabinoids Screen NEGATIVE Ur Drug Screen Comment Ethyl Alcohol Assessment/Plan All Active Problems Alcohol withdrawal (Acute) Polysubstance abuse (Acute) The patient is a 33 year old F with a significant history of alcohol dependence and abuse; heroine dependence and abuse and other drugs who presented because of withdrawal symptoms. Alcohol Dependence and Abuse Will put patient on Librium protocol and other supportive medications including methocarbamol and Mirapex. Thiamine; multivitamins and folic acid. [facility] consulted. Patient was counseled Polysubstance dependence and withdrawal including narcotic cocaine gabapentin and Flexeril. Urine drug screen showed amphetamines. Will use Librium protocol and other supportive medications as above. Tobacco abuse Counseled He smokes on some days and tobacco part was not indicated. DVT prophylaxis Low risk; ambulate Code Visit Inpatient E&M: 31495 Init Hosp L3
[2018-11-10 23:58] VITALS: BMI 35.4
[2018-11-11] VITALS (11 sets, daily range): BP systolic 109–125; BP diastolic 62–70; PULSE 58–75; RESP 18; TEMP 36.6–37; O2SAT 97–100
[2018-11-11] MEDS: Methocarbamol 750 MG Tablet PO ×3 (00:17→15:43)
[2018-11-11] MEDS: chlordiazePOXIDE 25 MG Capsule PO ×4 (00:17→18:44)
[2018-11-11] MEDS: Acetaminophen 325 MG Tablet 650 MG PO ×3 (00:17→15:43)
[2018-11-11] MEDS: Ondansetron 4 MG/2 ML Vial IV ×2 (00:24→18:46)
[2018-11-11] MEDS: Multivitamins,Therapeutic Tablet 1 TABLET PO (08:05)
[2018-11-11] MEDS: Folic Acid 1 MG Tablet PO (08:05)
[2018-11-11] MEDS: Thiamine Hydrochloride 100 MG Tablet PO (08:05)
[2018-11-11] MEDS: hydrOXYzine PAM 25 MG Capsule 50 MG PO ×2 (08:05→15:44)
[2018-11-11] MEDS: Pramipexole Di-HCl 0.25 MG Tablet PO (11:58)
--- NOTE | 2018-11-11 16:12 | PCM.PROGNOTE ---
Subjective: The patient is a 33-year-old female with a past medical history of alcohol dependence, hepatitis C, polysubstance abuse, obesity and tobacco dependence who presented to the emergency department at [facility] on 11/11/2018 requesting admission to the [facility] for medical stabilization for acute opiate and alcohol withdrawal. She also uses methamphetamine, crack and cocaine. Drinks She thinks her withdrawal sx are getting worse. daily and admits to 2-3 times a day having a mixed drink with whiskey. She stated her last alcohol use was a few days prior to presentation to the emergency room. She has previously been admitted to the [facility] in August 2017 and was sober for a year. She has also been in rehab in [facility] in September 2018. Her last use of heroin was approximately 26 hours prior to presenting to the emergency room. She complained of murmurs, restlessness, chills, irritability, nausea. CBC was remarkable for a low platelet count at 143,000. AST and ALT were mildly elevated and the bilirubin and alkaline phosphatase were within normal limits. Urine drug screen was positive for amphetamines. She was admitted to the hospital and started on a Librium taper. She was not placed on Suboxone. The patient was seen independently and in conjunction with Sonia Ward NP. She is complaining of anxiety, nausea and sweating. Objective: PHYSICAL EXAM: GENERAL: alert, oriented X 3, Cooperative, NAD ORAL: Dry mucosa, no mucosal lesions NECK: No JVD, supple, trachea midline LUNGS: CTA, symmetric chest expansion HEART: RRR, Normal S1 and S2, no rub, no gallop ABDOMEN: soft, NT, ND, BS present, no guarding with palpation EXTREMITIES: no edema, no cyanosis, no calf tenderness SKIN: No rashes, no breakdown NEUROLOGIC: no focal neurologic deficits PSYCH: appropriate, anxious - Physical Exam Vital Signs Temp Pulse Resp BP Pulse Ox 98.2 F 75 18 111/62 99 11/11/18 15:44 11/11/18 15:44 11/11/18 15:44 11/11/18 15:44 11/11/18 15:42 Oxygen Delivery Method Room Air Weight: 219 lb 9.286 oz Body Mass Index (BMI) 35.4 Intake and Output for Last 24 Hours 11/09/18 11/10/18 11/11/18 23:59 23:59 23:59 Intake Total 360 / 360 Balance 360 / 360 Laboratory Tests Past 24 Hrs 11/10/18 11/10/18 11/10/18 18:32 18:32 18:32 WBC 7.9 RBC 4.50 Hgb 13.5 Hct 39.5 MCV 87.8 MCH 30.0 MCHC 34.2 RDW 13.7 RDW Differential 43.4 Plt Count 143 L MPV 12.1 H Immature Gran % (Auto) 0.300 Neut % (Auto) 56.1 Lymph % (Auto) 31.6 [place] % (Auto) 9.8 Eos % (Auto) 1.9 Baso % (Auto) 0.3 Absolute Neuts (auto) 4.4 Absolute Lymphs (auto) 2.49 Total Counted Not Reportable Sodium 136 Potassium 4.3 Chloride 104 Carbon Dioxide 30.0 Anion Gap 2 L BUN 19 H Creatinine 0.77 Estim Creat Clear Calc 96.37 Est GFR (MDRD) Af Amer 111 Est GFR (MDRD) Non-Af 91 BUN/Creatinine Ratio 24.8 H Glucose 84 Calcium 8.6 Total Bilirubin 0.40 Direct Bilirubin 0.14 AST 49 H ALT 90 H Alkaline Phosphatase 78 Total Protein 7.0 Albumin 3.2 Globulin 3.8 Urine Color Urine Clarity Urine pH Ur Specific [place] Urine Protein Urine Glucose (UA) Urine Ketones Urine Occult Blood Urine Nitrite Urine Bilirubin Urine Urobilinogen Ur Leukocyte Esterase Urine RBC Urine WBC Ur Squamous Epith Cells Urine Bacteria Urine Mucus Urine Opiates Screen Urine Methadone Screen Ur Barbiturates Screen Ur Phencyclidine Scrn Ur Amphetamines Screen U Methamphetamin-MDMA U Benzodiazepines Scrn Urine Cocaine Screen U Cannabinoids Screen Ur Drug Screen Comment Ethyl Alcohol 10.0 11/10/18 11/10/18 19:35 19:35 WBC RBC Hgb Hct MCV MCH MCHC RDW RDW Differential Plt Count MPV Immature Gran % (Auto) Neut % (Auto) Lymph % (Auto) [place] % (Auto) Eos % (Auto) Baso % (Auto) Absolute Neuts (auto) Absolute Lymphs (auto) Total Counted Sodium Potassium Chloride Carbon Dioxide Anion Gap BUN Creatinine Estim Creat Clear Calc Est GFR (MDRD) Af Amer Est GFR (MDRD) Non-Af BUN/Creatinine Ratio Glucose Calcium Total Bilirubin Direct Bilirubin AST ALT Alkaline Phosphatase Total Protein Albumin Globulin Urine Color Yellow Urine Clarity Clear Urine pH 6.5 Ur Specific [place] 1.015 Urine Protein Negative Urine Glucose (UA) Normal Urine Ketones Negative Urine Occult Blood Negative Urine Nitrite Negative Urine Bilirubin Negative Urine Urobilinogen Normal Ur Leukocyte Esterase Negative Urine RBC 0 SEEN Urine WBC 0-5 SEEN Ur Squamous Epith Cells 5-10 SEEN Urine Bacteria 0 SEEN Urine Mucus 0 SEEN Urine Opiates Screen NEGATIVE Urine Methadone Screen NEGATIVE Ur Barbiturates Screen NEGATIVE Ur Phencyclidine Scrn NEGATIVE Ur Amphetamines Screen POSITIVE H U Methamphetamin-MDMA NEGATIVE U Benzodiazepines Scrn NEGATIVE Urine Cocaine Screen NEGATIVE U Cannabinoids Screen NEGATIVE Ur Drug Screen Comment Ethyl Alcohol Medical Necessity - Tobacco Use Smoking Status: Current some day smoker Tobacco Use: Cigarettes, Vapor Assessment/Plan All Active Problems Alcohol withdrawal (Acute) Polysubstance abuse (Acute) Impressions 1. Acute opiate withdrawal - Pt wuit using heroin 26 hours prior to presenting to the ED but was taking Percocet 2. Narcotic dependence 3. Alcohol dependence 4. Tobacco dependence 5. Polysubstance abuse 6. Hepatitis C 7. Obesity Start a Suboxone taper and continue Librium taper She will be seen by Sage Rosa on Tuesday and plans for discharge will be discussed. Code Visit Inpatient E&M: 09374 Subs Hosp L2
[2018-11-11 17:58] LABS: Internal QC Validated? YES +Cl - CLEAR BKGD; Pregnancy, Urine Negative Negative
--- NOTE | 2018-11-11 18:12 | PCM.PROGNOTE ---
Subjective: Patient seen and examined. Complains of anxiety, nausea, diaphoresis. Feels her withdrawal symptoms are increasing this evening. - Physical Exam General: Alert, Oriented x3, Cooperative HEENT: Atraumatic, PERRLA, EOMI, Normocephalic Oral: Dry Mucosa Neck: Supple, No JVD, Negative Carotid Bruits Lungs: Clear to auscultation, Normal air movement Cardiovascular: Regular rate, Regular Rhythm, Normal S1, Normal S2, No murmurs Abdomen: Bowel Sounds Present, Soft, Non Tender, Non-Distended, Obese Extremities: No clubbing, No cyanosis, No edema, Capillary Refill Less than 3 Seconds Skin: No rashes, No breakdown Musculoskeletal: No Tenderness to Palpation of Joints or Extremities Neurological: Cranial nerves II-XII grossly intact, Neuro grossly intact Psych/Mental Status: Anxious Vital Signs Temp Pulse Resp BP Pulse Ox 98.2 F 75 18 111/62 99 11/11/18 15:44 11/11/18 15:44 11/11/18 15:44 11/11/18 15:44 11/11/18 15:42 Oxygen Delivery Method Room Air Weight: 219 lb 9.286 oz Body Mass Index (BMI) 35.4 Intake and Output for Last 24 Hours 11/09/18 11/10/18 11/11/18 23:59 23:59 23:59 Intake Total 720 / 720 Balance 720 / 720 Laboratory Tests Past 24 Hrs 11/10/18 11/10/18 11/10/18 18:32 18:32 18:32 WBC 7.9 RBC 4.50 Hgb 13.5 Hct 39.5 MCV 87.8 MCH 30.0 MCHC 34.2 RDW 13.7 RDW Differential 43.4 Plt Count 143 L MPV 12.1 H Immature Gran % (Auto) 0.300 Neut % (Auto) 56.1 Lymph % (Auto) 31.6 [place] % (Auto) 9.8 Eos % (Auto) 1.9 Baso % (Auto) 0.3 Absolute Neuts (auto) 4.4 Absolute Lymphs (auto) 2.49 Total Counted Not Reportable Sodium 136 Potassium 4.3 Chloride 104 Carbon Dioxide 30.0 Anion Gap 2 L BUN 19 H Creatinine 0.77 Estim Creat Clear Calc 96.37 Est GFR (MDRD) Af Amer 111 Est GFR (MDRD) Non-Af 91 BUN/Creatinine Ratio 24.8 H Glucose 84 Calcium 8.6 Total Bilirubin 0.40 Direct Bilirubin 0.14 AST 49 H ALT 90 H Alkaline Phosphatase 78 Total Protein 7.0 Albumin 3.2 Globulin 3.8 Urine Color Urine Clarity Urine pH Ur Specific [place] Urine Protein Urine Glucose (UA) Urine Ketones Urine Occult Blood Urine Nitrite Urine Bilirubin Urine Urobilinogen Ur Leukocyte Esterase Urine RBC Urine WBC Ur Squamous Epith Cells Urine Bacteria Urine Mucus Urine Test Urine Opiates Screen Urine Methadone Screen Ur Barbiturates Screen Ur Phencyclidine Scrn Ur Amphetamines Screen U Methamphetamin-MDMA U Benzodiazepines Scrn Urine Cocaine Screen U Cannabinoids Screen Ur Drug Screen Comment Ethyl Alcohol 10.0 11/10/18 11/10/18 11/10/18 19:35 19:35 19:35 WBC RBC Hgb Hct MCV MCH MCHC RDW RDW Differential Plt Count MPV Immature Gran % (Auto) Neut % (Auto) Lymph % (Auto) [place] % (Auto) Eos % (Auto) Baso % (Auto) Absolute Neuts (auto) Absolute Lymphs (auto) Total Counted Sodium Potassium Chloride Carbon Dioxide Anion Gap BUN Creatinine Estim Creat Clear Calc Est GFR (MDRD) Af Amer Est GFR (MDRD) Non-Af BUN/Creatinine Ratio Glucose Calcium Total Bilirubin Direct Bilirubin AST ALT Alkaline Phosphatase Total Protein Albumin Globulin Urine Color Yellow Urine Clarity Clear Urine pH 6.5 Ur Specific [place] 1.015 Urine Protein Negative Urine Glucose (UA) Normal Urine Ketones Negative Urine Occult Blood Negative Urine Nitrite Negative Urine Bilirubin Negative Urine Urobilinogen Normal Ur Leukocyte Esterase Negative Urine RBC 0 SEEN Urine WBC 0-5 SEEN Ur Squamous Epith Cells 5-10 SEEN Urine Bacteria 0 SEEN Urine Mucus 0 SEEN Urine Test Negative Urine Opiates Screen NEGATIVE Urine Methadone Screen NEGATIVE Ur Barbiturates Screen NEGATIVE Ur Phencyclidine Scrn NEGATIVE Ur Amphetamines Screen POSITIVE H U Methamphetamin-MDMA NEGATIVE U Benzodiazepines Scrn NEGATIVE Urine Cocaine Screen NEGATIVE U Cannabinoids Screen NEGATIVE Ur Drug Screen Comment Ethyl Alcohol Medical Necessity - Tobacco Use Smoking Status: Current some day smoker Tobacco Use: Cigarettes, Vapor Assessment/Plan All Active Problems Alcohol withdrawal (Acute) Polysubstance abuse (Acute) 1. Acute alcohol withdrawal on chronic alcohol dependence-medical stabilization per [facility] protocol. Alcohol level 10 on admission. Thiamine, multivitamin, folic acid supplementation. Librium taper. PRN regimen for somatic complaints. 2. Polysubstance abuse-urine tox positive for methamphetamines. 3. Tobacco dependence-encouraged cessation. Nicotine replacement patch. 4. Obesity-encouraged diet lifestyle modifications. DVT prophylaxis-not indicated, low risk. This patient was seen by TARA Connor under the supervision of Dr. Tam.
[2018-11-11] MEDS: 0.9% NaCl Peripheral Flush Adult/Peds IV (18:46)
[2018-11-11] MEDS: Buprenorphine HCl 2 MG TAB.SUBL SL (20:30)
[2018-11-11] MEDS: Mag Hydrox/Al Hydrox/Simeth 30 ML UDC PO (21:57)
[2018-11-11 22:54] LABS: HIV - WCH Non-Reactive (Nonreactive)
[2018-11-12] VITALS (7 sets, daily range): BP systolic 98–118; BP diastolic 44–80; PULSE 71–81; RESP 16–18; TEMP 36.5–36.7; O2SAT 98–99
[2018-11-12] MEDS: hydrOXYzine PAM 25 MG Capsule 50 MG PO ×3 (00:25→16:57)
[2018-11-12] MEDS: Methocarbamol 750 MG Tablet PO ×3 (00:25→16:57)
[2018-11-12] MEDS: Pramipexole Di-HCl 0.25 MG Tablet PO ×2 (00:25→11:37)
[2018-11-12] MEDS: chlordiazePOXIDE 25 MG Capsule PO ×3 (02:31→18:43)
[2018-11-12] MEDS: Ondansetron 4 MG/2 ML Vial IV ×2 (02:36→10:17)
[2018-11-12] MEDS: 0.9% NaCl Peripheral Flush Adult/Peds IV ×2 (02:36→10:18)
[2018-11-12] MEDS: Buprenorphine HCl 2 MG TAB.SUBL SL ×3 (04:06→19:52)
--- NOTE | 2018-11-12 08:49 | NURSING ---
Pt awake. Door is closed and this nurse across from patients room with door closed and she is talking with someone on the phone. Why don't you believe me. PT sobbing. WHy are you doing this to me. Your treating me like paulo.
--- NOTE | 2018-11-12 09:35 | PCM.PROGNOTE ---
Subjective: Afebrile, vital signs stable, 99% on room air. Currently on Librium taper for acute alcohol withdrawal and Suboxone for acute narcotic withdrawal. Urine test was negative Reports to me that she started to abuse Adderall when she was 4 years old. Has been using Heroin for 4-5 years and prior to heroin was abusing Percocet and Vicodin. Uses METH 5-6 times a day. Just started drinking about 1 month ago. Currently is living with her parents. Does not intend to go to inpt therapy......will do OP when discharged. She is c/o not sleeping last night, restless and some nausea. No diarrhea. Tells me that being started on Suboxone taper yesterday helped.....prior to that she was going to leave. She lives in [place]. Objective: PHYSICAL EXAM: GENERAL: alert, oriented X 3, Cooperative, she is very restless and is constantly moving around in the bed ORAL: moist mucosa, no mucosal lesions NECK: No JVD, supple, trachea midline LUNGS: CTA, symmetric chest expansion HEART: RRR, Normal S1 and S2, no rub, no gallop ABDOMEN: soft, NT, ND, BS present, no guarding with palpation, no hepatosplenomegaly EXTREMITIES: no edema, no cyanosis, no calf tenderness SKIN: No rashes, no breakdown, not diaphoretic, no piloerection NEUROLOGIC: no focal neurologic deficits PSYCH: appropriate, anxious - Physical Exam Vital Signs Temp Pulse Resp BP Pulse Ox 97.7 F L 81 18 118/80 99 11/12/18 06:00 11/12/18 06:00 11/12/18 06:00 11/12/18 06:00 11/12/18 02:39 Oxygen Delivery Method Room Air Weight: 219 lb 9.286 oz Body Mass Index (BMI) 35.4 Intake and Output for Last 24 Hours 11/10/18 11/11/18 11/12/18 23:59 23:59 23:59 Intake Total 720 / 1170 950 / 950 Balance 720 / 1170 950 / 950 Laboratory Tests Past 24 Hrs 11/10/18 11/10/18 11/10/18 18:32 18:32 19:35 Urine Test Negative Hepatitis A IgM Ab Pending Hepatitis A Ab Total Pending Hep Bs Antigen Pending Hep B Core Total Ab Pending Hep B Core IgM Ab Pending HIV 1&2 Antibody Non-Reactive Medical Necessity - Tobacco Use Smoking Status: Current some day smoker Tobacco Use: Cigarettes, Vapor Assessment/Plan All Active Problems Alcohol withdrawal (Acute) Polysubstance abuse (Acute) Impressions 1. Acute opiate withdrawal - Pt admits to using heroin 26 hours prior to presenting to the ED but was taking Percocet 2. Narcotic dependence 3. Alcohol dependence 4. Tobacco dependence 5. Polysubstance abuse 6. Hepatitis C 7. Obesity Hepatitis AB panel is pending. Continue chlordiazepoxide and Suboxone taper for alcohol dependence and narcotic dependence She will meet with the [facility] [employer] sales representative tomorrow to determine disposition at discharge. Code Visit Inpatient E&M: 57545 Subs Hosp L2
[2018-11-12] MEDS: Dicyclomine 10 MG Capsule 20 MG PO ×2 (10:04→16:57)
[2018-11-12] MEDS: Multivitamins,Therapeutic Tablet 1 TABLET PO (10:07)
[2018-11-12] MEDS: Folic Acid 1 MG Tablet PO (10:08)
[2018-11-12] MEDS: Thiamine Hydrochloride 100 MG Tablet PO (10:08)
[2018-11-12] MEDS: Acetaminophen 325 MG Tablet 650 MG PO ×2 (10:26→16:57)
--- NOTE | 2018-11-12 12:41 | NURSING ---
Male Visitor came to see pt. Patient was heard yelling at him. This nurse stood at doorway listening with door closed. Male Visitor demanding to look at her cell phone because he claims that she was just talking to her drug dealer 4hrs ago. I was calling to tell him that I didn't want drugs anymore. This nurse walked in room. Patient continues screaming at visitor You just want to see my phone because you think I am cheating. This gets repeated several times by patient only after several times of the Male Visitor stating pt was calling drug dealer. Pt pulled out her Saline Lock, I'm leaving. I'm trying to get clean and you don't trust me. (talking to visitor) This nurse attempted to intervene. Pt screaming at visitor at the top of her lungs. This nurse told patient that she needed to stop screaming/yelling. She had to be reminded of this several times. Having Severe ANxiety. I don't want to be here anymore. Encouraged to stay, No I mean I don't want to be on this earth anymore. This nurse asked pt if she had any suicidal thoughts and patient denies. Male Visitor getting her to calm down to the point she layed down in the bed. AMA papers were brought to patient to sign but she then state is staying. This nurse reminded pt to be quiet and not to scream and yell.
--- NOTE | 2018-11-12 19:32 | NURSING ---
Patient's mother called desk with concerns for daughter. She stated that patient had called her and wants to kill herself. She asked this RN to check in on her to see how she was doing. Went into room and asked Annalee if she felt the urge to hurt herself in anyway. She denied any type of ideations and stated that her mother should not be calling in to stir up drama. Asked to be taken off of directory, and also confessed that she is having a bunch of relationship distress. Stated she wanted no further visitation this evening so this RN elected to lock down unit to prevent potential visitors. Registration notified to remove from directory.
--- NOTE | 2018-11-12 22:45 | NURSING ---
Pt wanting to leave unit, raising voice and yelling at boyfriend on phone. Scribbled on AMA signature line in order to be let out of unit. This RN rode elevator down to escort out of building, as patient was in an angry state. Upon getting off on ground floor, boyfriend notified patient via phone that he would not be coming to pick her up. Patient dropped down to knees by [facility] and started sobbing loudly and asked if she could come back up to her room. This RN elected to let her come back up to room, as I was not confident in her emotional wellbeing. Informed her that it may be best to stay off of phone, in order to reduce stressors and drama. She agreed to stay in her room the rest of the shift and not raise her voice, as other patients are trying to sleep.
--- NOTE | 2018-11-12 22:45 | NURSING ---
Called by DRUPAL ARCHITECT to advise that patient had her bags packed and was yelling in the hallways stating that her boyfriend is cheating on her and she has to leave. Found patient walking around the hallway with her bags yelling for directions to the exit. Approached pt in hallway and asked her to come back to her room and talk with me. Pt refused stating she didn't want to talk to anybody and just wanted to leave. At that time charge nurse, Migue, approached. Pt still not wanting to talk with staff and wanting to leave. Asked patient to sign AMA papers to which patient squiggled on the page. Pt escorted down the elevators by charge nurse. A short time later patient returned to the floor and went back to her room. Charge nurse advised patient's boyfriend refused to pick her up so patient returned.
[2018-11-13 02:19] VITALS: BP 118/68; PULSE 81; RESP 18; TEMP 36.7
[2018-11-13] MEDS: chlordiazePOXIDE 25 MG Capsule PO ×2 (02:23→13:44)
[2018-11-13] MEDS: Buprenorphine HCl 2 MG TAB.SUBL SL ×3 (04:19→23:45)
[2018-11-13 08:21] VITALS: BP 94/49; PULSE 74; RESP 16; TEMP 36.6; O2SAT 98
[2018-11-13] MEDS: Folic Acid 1 MG Tablet PO (09:37)
[2018-11-13] MEDS: Thiamine Hydrochloride 100 MG Tablet PO (09:38)
[2018-11-13] MEDS: Multivitamins,Therapeutic Tablet 1 TABLET PO (09:38)
--- NOTE | 2018-11-13 10:14 | NEWVISION ---
[facility] in to see patient. At this time patient is refusing to speak to me. I let HAVEN Christensen, know to call me if patient becomes interested in services or in resources.
[2018-11-13 14:00] VITALS: BP 102/49; PULSE 80; RESP 16; TEMP 36.8; O2SAT 98
[2018-11-13] MEDS: Acetaminophen 325 MG Tablet 650 MG PO (16:01)
[2018-11-13] MEDS: Mag Hydrox/Al Hydrox/Simeth 30 ML UDC PO (16:12)
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
[2018-11-13 20:43] VITALS: BP 110/64; PULSE 75; RESP 18; TEMP 36.6; O2SAT 96
--- NOTE | 2018-11-13 21:30 | PCA ---
patient heard screaming in her room, this KENNEL SUPERVISOR entered room with RN Lyn, patient stating she wanted to leave, patient continuing to scream at staff members and someone on the phone, this KENNEL SUPERVISOR attempted to calm patient and was unsuccessful, this KENNEL SUPERVISOR called security and alerted them to what was happening. patient signed AMA papers witnessed by this KENNEL SUPERVISOR, patient refused to take her copy of the paperwork and this KENNEL SUPERVISOR went down the elevator with patient and walked to the door with her. Officer Cortez met this KENNEL SUPERVISOR on the ground floor by door and observed patient walking across the parking lot.
--- NOTE | 2018-11-13 22:00 | NURSING ---
Daniel from ED notifed this RN of patient returning to triage after leaving [facility]. Pt states she never left the property and wants to come back because she has no place to go. I discussed with the patient that once the patient leaves they are not permitted back in to [facility]. Oh is yelling and crying, talking to her significant other the phone, states to boyfriend multiple times that they wont let me back in, I have nowhere to go, Im just going to go do drugs then, if I dont have anywhere to go. Patient continually yelling in the phone. Candie the social service assistant in ER came to help with this patient to try to help with finding patient alternative housing for the night. Due to seeing the patient becomes more distraught when talking with significant other on phone, pt was requested to turn her phone off. Patient states that she doesnt want to do drugs but will if she has to leave because she doesnt have anyother place to go. I spoke with Dr Larios about letting patient return to the hospital, she was in agreement with allowing her back in if she agreed to not having her phone, and would take a tox screen. Pt agreed to stay. Pt was taken back to [facility] via wheelchair
--- NOTE | 2018-11-13 22:01 | NURSING ---
went to get patient medication for complaints of stomach cramping and diarrhea. got back to room and patient was extremely agitated stating she was leaving due to her boyfriend breaking up with her and cheating on her. attempted to calm patient. unable to calm her down or listen to reason. pt got dressed, signed AMA paper on the way out the door. security was notified and witnessed pt leaving.
--- NOTE | 2018-11-13 22:16 | NURSING ---
Pt left AMA at 2124 today but had not yet been taken out of the computer. Annalise, Nursing Protection [employer], just now brought pt back to the floor.
--- NOTE | 2018-11-13 22:34 | CM.ED ---
Social Work Referral: Referral by triage. Triage requesting for this psychosocial rehabilitation counselor to meet warehouse packaging supervisor in triage. Met with warehouse packaging supervisor, Annalise and patient in triage room. Patient tearful and stating I'm sorry, I just want to come back. Per Annalise, patient left AMA from medical floor 10min ago. Patient reporting to have nowhere to go. Patient was offered [facility] earlier today, but declined. Patient currently going through detox per patient/Annalise. Patient becoming frustrated with process of seeing if patient is able to return to floor and stating I am just going to go do some drugs and . This psychosocial rehabilitation counselor inquiring if patient is suicidal. Patient denies suicidal thoughts stating I know what you are doing I am not going to be pink slipped, they take my phone. Patient stating no further suicidal comments/plan while with this psychosocial rehabilitation counselor. Collaborating with Annalise and Dr. Larios. Patient to be brought back to Medical floor. While meeting with patient it is apparent that patient is triggered by boyfriend calling patient on phone. Boyfriend called multiple times and every time patient answered and would become exacerbated and tearful. Annalise requesting for patient to turn off phone, patient compliant with turning off phone and willing to put phone in hospital safe in order to minimize triggers and distractions. This psychosocial rehabilitation counselor and Annalise escorted patient back to medical floor. This psychosocial rehabilitation counselor making a crisis referral at this time. This psychosocial rehabilitation counselor speaking with David. Hood to follow up with patient for crisis assessment. Eliza Estrada MSW, SHARON
[2018-11-13] MEDS: Loperamide 2 MG Capsule PO (22:39)
[2018-11-13] MEDS: Dicyclomine 10 MG Capsule 20 MG PO (22:39)
[2018-11-13 22:43] VITALS: BP 116/73; PULSE 88; RESP 18; TEMP 36.4; O2SAT 99
[2018-11-14 02:00] VITALS: BP 114/58; PULSE 76; RESP 16; TEMP 36.8; O2SAT 100
[2018-11-14 05:07] LABS: HEPATITIS B SURFACE AG Negative (Negative); Hepatitis A AB, Total Negative (Negative); Hepatitis A IgM Antibody Negative (Negative); Hepatitis B Core AB IgM Negative (Negative); Hepatitis B Core Ab Total Negative (Negative); Hepatitis C Ab >11.0 s/co ratio (0.0-0.9)
[2018-11-14 05:50] VITALS: BP 118/63; PULSE 78; RESP 16; TEMP 36.9; O2SAT 99
[2018-11-14] MEDS: Multivitamins,Therapeutic Tablet 1 TABLET PO (09:05)
[2018-11-14] MEDS: Pramipexole Di-HCl 0.25 MG Tablet PO (09:06)
[2018-11-14] MEDS: Methocarbamol 750 MG Tablet PO (09:06)
[2018-11-14 10:00] VITALS: BP 122/80; PULSE 70; RESP 16; RESP 18; TEMP 37.2; O2SAT 98
--- NOTE | 2018-11-14 10:10 | NEWVISION ---
Sage Rosa followed up with patient regarding interest in aftercare rehabilitation services. Patient reported that she has been thinking about leaving [facility]. Patient stated that she is interested in going to [facility]. Sage Rosa contacted [facility]. Aminata from [facility] reported that patient states that she is dual diagnosis; therefore they are unable to accept patient. IC contacted JOEL Sawyer and provided information stated above and contact info for two inpatient facilities for possible referral.
--- NOTE | 2018-11-14 12:29 | DCINST_ITS ---
You will use the following diet at home:: No restrictions Your food should be the consistency of: Regular Your liquids should be the consistency of: Regular/Thin Discharge Activity: Return to Normal Activity Call your doctor if you observe: Fever of 101 or Higher, - - jaundice, swelling of the legs or the abdomen, bleeding from the nose, mouth, anus or hematuria Pending Tests on Discharge: hepatitis panel Allergies/Adverse Reactions: Allergies No Known Allergies Allergy (Verified 08/22/17 13:47) Medications to take at Discharge NK 08/22/17 Primary Care Physician: Moon Gordon NP-C [Primary Care Provider] - Please follow up with your Primary Care Physician in: when discharged from rehab Test Results: Test results from this visit will be discussed in further detail at your follow- up appointment, if applicable. Proposed Discharge Date: 11/14/18
--- NOTE | 2018-11-14 12:30 | CASEMGMT ---
Social Work Note SW updated by Imani Gerard with [facility] that pt is not [facility] as pt has been thinking about leaving [facility]. Imani Gerard states pt mentioned going to [facility] (phone [phone]). Imani Gerard also mentioned [facility] may be good for pt as well (phone [phone]). SW met with pt, introduced self and role at [facility]. Pt is alert and orientated x3. Pt confirms that she is wanting to go to [facility]. Pt signed release of medical records authorization for [facility]. SW placed a call to [facility] and spoke with Ruth. Ruth states that she has already received information regarding pt and she is able to accept pt today before 4:00pm. Physician updated. SW updated pt on acceptance to [facility] and that pt must be at [facility] before 4:00pm today. Pt states that her boyfriend will be coming to pick her up. SW asked if she had any other family or friends to transport her and pt denied. RN updated. Plan: Pt to go [facility] today with significant other transporting pt Beatrice Ellis [employer]
[2018-11-14] MEDS: Dicyclomine 10 MG Capsule 20 MG PO (12:34)
[2018-11-14] MEDS: Buprenorphine HCl 2 MG TAB.SUBL SL (12:34)
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
[2018-11-14 13:27] VITALS: BP 122/80; PULSE 70; RESP 16; TEMP 37.2; O2SAT 98
--- NOTE | 2018-11-14 13:30 | NURSING ---
called back to room by primary RN as pt is yelling in the room. Pt found to be yelling on the cellphone and states they are going to call security I need to leave. Pt gathered her belongings and walking out. Pt did verbalize that she had been given her discharge instructions and would not give a clear answer if had a ride. Security office [place] already on unit, requested he escort patient out. Pt left unit with her cellphone and belongings.
[2018-11-15 10:46] LABS: Hep B Surface Antibodies Reactive (.)
== END 2018-11-14 13:32 | disposition home or self-care (01) | DRG 773 ==
LOC: ED 18:16 → MS3 23:41
PROVIDERS: Admitting Provider Hospitalist; Emergency Provider Emergency Medicine; Family Provider Nurse Practitioner Family; PCP Nurse Practitioner Family; Referring Provider Hospitalist; Visit Provider Internal Medicine
DX: F11.23 Opioid dependence with withdrawal (principal); F10.239 Alcohol dependence with withdrawal, unspecified; E66.9 Obesity, unspecified; Y90.0 Blood alcohol level of less than 20 mg/100 ml; F17.210 Nicotine dependence, cigarettes, uncomplicated; Z76.5 Malingerer [conscious simulation]; D69.6 Thrombocytopenia, unspecified; B18.2 Chronic viral hepatitis C; F60.3 Borderline personality disorder; F19.10 Other psychoactive substance abuse, uncomplicated; R74.0 Nonspecific elevation of levels of transaminase and lactic acid dehydrogenase [LDH]; Z68.35 Body mass index [BMI] 35.0-35.9, adult
CPT/HCPCS: 80048; 80076; 80307; 80320; 81001; 81025; 85025; 86703; 86704; 86705; 86706; 86708; 86709; 86803; 87340; 99284; J7030; A4216; G0480; J2405

== ENCOUNTER 2023-03-08 02:34 | Observation (INO) | payer MEDICAID, SELFPAY ==
[2023-03-08 02:37] VITALS: BP 148/91; PULSE 103; RESP 18; TEMP 36.6; O2SAT 100; BMI 33.5
--- NOTE | 2023-03-08 02:45 | EX.ED.SAOD ---
HPI History of Present Illness Chief Complaint: Substance Abuse Detail of Chief Complaint: Requesting detox from opiates Informant: patient Narrative Narrative: Patient presents to the emergency department with complaint of needing detox from opiates. Patient states that she uses heroin daily. Patient states she relapsed several months ago. She uses IV form and sometimes she snorts it. She thinks she may be using up to a gram a day. Her last use was 11 PM last evening. Last time she went through detox was in 2018 at this facility. Patient also admits to using methamphetamines. Denies alcohol use. Patient denies recent illness. [facility] Medical History (Updated 03/08/23 @ 03:[address] Andra Floyd, DO) delivery delivered Substance abuse Home Medications lamotrigine 25 mg tablet 25 mg PO Q24H 03/08/23 [History Last Taken Unknown] sertraline 50 mg tablet 50 mg PO Q24H 03/08/23 [History Last Taken Unknown] Allergy/AdvReac Type Severity Reaction Status Date / Time No Known Allergies Allergy Verified 03/08/23 02:36 Social History Smoking Status: Current every day smoker tobacco type: cigarettes ROS ROS ED Review of Systems ROS Unobtainable: other Constitutional Constitutional ED: Reports lethargy; Denies chills, fever(s), sweats or weight loss Eyes Eyes: Denies blurry vision, change in vision or diplopia ENT ENT ED: Denies rhinorrhea or sore throat Cardiovascular Cardiovascular: Denies chest pain, orthopnea or racing heartbeat Respiratory/Chest Respiratory/Chest: Denies cough, dyspnea, dyspnea on exertion, orthopnea or sputum Gastrointestinal Gastrointestinal: Denies abdominal pain, diarrhea, nausea or vomiting Genitourinary Genitourinary ED: Denies dysuria, hematuria or urinary frequency Musculoskeletal Musculoskeletal: Denies arthralgias, back pain, myalgias or neck pain Integumentary Denies abscess, Abrasions or rash Neurologic Neurologic: Denies headache(s) or weakness Psychiatric Psychiatric: Denies anxiety, depression or suicidal thoughts Endocrine Endocrinology: Denies polydipsia, polyphagia or polyuria Hematologic/Lymphatic Hematologic/Lymphatic: Denies easy bleeding, easy bruising or lymphadenopathy Allergic/Immunologic Allergic/Immunologic ED: Denies mouth swelling, tongue swelling or urticaria EXAM Physical Exam Const Vital Signs: 03/08/23 02:37 03/08/23 02:56 Temperature 97.8 F Temperature Source Temporal Pulse Rate 103 H 102 H Respiratory Rate 18 18 Blood Pressure 148/91 H 141/89 H Blood Pressure Mean 110 106 Pulse Ox 100 99 Positive well nourished and well developed General Appearance ED: well developed and NAD HEENT Reports TM's clear and moist mucous membranes normocephalic and atraumatic; Negative for trauma or tenderness Tympanic Membrane ED: Yes TM's clear Eyes PERRL and EOMs intact bilaterally General Eye ED: Negative for pale conjunctiva or scleral icterus Neck no lymphadenopathy, supple and no JVD General: Negative for tenderness Chest Wall inspection of chest normal and palpation of chest normal Chest: Negative for tenderness Resp normal respiratory effort and clear to auscultation bilaterally Effort and Inspection: Negative for respiratory distress or pain with movement Auscultation: Negative for rhonchi, wheezes or diminished lung sounds Cardio regular rate, regular rhythm, S1 normal heart sound, S2 normal heart sound and no murmurs Peripheral Pulses: pulses 2+ throughout GI normal to inspection, nondistended, normoactive bowel sounds, soft to palpation, non-tender, non-distended and no masses Back/Spine no CVA tenderness and no thoracic nor lumbar tenderness Extremity Extremity Narrative: TremorPatient has multiple track cash to the noted antecubital region. General Extremety ED: Negative for edema General Extremity: Negative for edema Neuro oriented x3, CN's II-XII intact bilaterally, no sensory deficits noted and gait normal Sensorium / Orientation: awake, alert, oriented to person, oriented to place and oriented to time Motor Exam: strength 5/5 throughout and strength abnormal Psych mental status grossly normal Skin no rashes or lesions noted and no wounds MDM MDM Lab Data Labs: Laboratory Results - last 24 hr 03/08/23 02:50 Ur Drug Screen Comment Discharge Plan Triage Chief Complaint: Substance Abuse ED Provider: Andra Floyd Dx/Rx/DC Orders Clinical Impression: Opiate abuse, continuous, Admitted to substance misuse detoxification center, Polysubstance abuse, Hypertension Prescriptions: No Action lamotrigine 25 mg tablet 25 mg PO Q24H Patient Comments: TAKE 1 TABLET BY MOUTH ONCE DAILY AFTER BREAKFAST sertraline 50 mg tablet 50 mg PO Q24H Patient Comments: TAKE 1 TABLET BY MOUTH ONCE DAILY AFTER BREAKFAST Primary Care Provider: Moon Gordon NP Referrals: Trill,Moon SHIP [employer]OPELLER FINISHER, SHIP PROPELLER FINISHER-C [Primary Care Provider] - Disposition Disposition: Acute Care Hospital [facility]
[2023-03-08 02:56] VITALS: BP 141/89; PULSE 102; RESP 18; O2SAT 99
[2023-03-08 03:19] LABS: Amphetamine Urine VISTA POSITIVE (<1000 ng/mL); Barbiturate Urine VISTA NEGATIVE (< 200 ng/mL); Benzodiazepine Urine VISTA NEGATIVE (< 200 ng/mL); Cocaine Urine VISTA NEGATIVE (< 300 ng/mL); Ecstacy Urine VISTA POSITIVE (< 500 ng/mL); Methadone Urine VISTA NEGATIVE (< 300 ng/mL); PCP Urine VISTA NEGATIVE (< 25 ng/mL); THC Urine VISTA NEGATIVE (< 50 ng/mL); Vista UDS pH Range 4
[2023-03-08 03:39] LABS: Internal QC Validated? YES +Cl - CLEAR BKGD; Pregnancy, Urine Negative Negative
--- NOTE | 2023-03-08 03:55 | PCM.HP.STD ---
HPI - General General Date of Admission: 03/08/23 Date of Service: 03/08/23 Chief Complaint: Desire for detoxification HPI Narrative JOHN PATINO, is a 37 F with a significant history of depression; personality mood disorder ; and polysubstance abuse who presented to emergency department for help with detoxification. Patient has been using since 2014. She stopped using only to resume using about 4 months ago. The drugs she uses heroin; methamphetamine; opioid pills which include Percocet and Vicodin. She injects all snorts of these bags. She uses about half a gram of heroin per day; about 1 g of meth per day and 6 to 8 pills of opioid per day. Also she smokes marijuana. Last time she used was the same night of presentation so she was not having any withdrawal symptoms when she came in. She reports that about 2 weeks ago she overdosed on drugs and had to receive Narcan 2 times from paramedics. She reported following the overdose that she has pain in her right knee and her right hip. Also she complains that typically she has swelling in the bilateral legs. She began smoking tobacco about a month ago. She typically smokes about 4-5 sticks per day. [facility] Medical History Substance abuse Home Medications lamotrigine 25 mg tablet 25 mg PO Q24H depression 03/08/23 [History Last Taken 03/06/23] sertraline 50 mg tablet 50 mg PO Q24H depression 03/08/23 [History Last Taken 03/06/23] valacyclovir 1 gram tablet 1,000 mg PO Q12H cold sore 03/08/23 [History Last Taken 03/07/23] Allergy/AdvReac Type Severity Reaction Status Date / Time No Known Allergies Allergy Verified 03/08/23 02:36 Family History Other Cancer Heart disease Surgical History delivery delivered Social History Smoking Status: Current every day smoker tobacco type: cigarettes ROS ROS Narrative Pertinent positives and pertinent negatives as noted in HPI. All other systems were reviewed and are negative Vital Signs Vital Signs Vital Signs: 03/08/23 02:37 03/08/23 02:56 Temperature 97.8 F Temperature Source Temporal Pulse Rate 103 H 102 H Respiratory Rate 18 18 Blood Pressure 148/91 H 141/89 H Blood Pressure Mean 110 106 Pulse Ox 100 99 Weight Weight: 94.1 kg Body Mass Index (BMI) 33.5 Physical Exam Narrative Physical exam: General: Well-nourished, well-developed. Head: Normocephalic, atraumatic, no tenderness Eyes: Vision is grossly intact. EOMI ENT, no trauma, moist mucous membranes, no rhinorrhea Neck: Nontender, No thyromegaly. CVS: Regular rate and rhythm. S1-S2 present. No murmur, gallop or rub. Respiratory : clear to auscultation bilaterally, chest wall nontender Abdomen: Soft, nontender, nondistended, normal bowel sounds, no masses : Deferred Back: Nontender, no CVA tenderness, no midline spinal tenderness, deformities, step-offs Extremities: Nontender full range of motion, no trauma Skin: Normal color, no trauma, abrasions Neuro: Alert, oriented, cranial nerves II through XII grossly intact. Psychiatry: Normal mood. Normal affect. Not depressed. Not anxious. Results Lab / Micro Data Attestation: I reviewed the patient's lab results. Labs: Laboratory Results - last 24 hr 03/08/23 02:50: Urine Test Negative, Urine Opiates Screen NEGATIVE, Urine Methadone Screen NEGATIVE, Ur Barbiturates Screen NEGATIVE, Ur Phencyclidine Scrn NEGATIVE, Ur Amphetamines Screen POSITIVE H, MDMA (Ecstasy) Screen POSITIVE H, U Benzodiazepines Scrn NEGATIVE, Urine Cocaine Screen NEGATIVE, U Cannabinoids Screen NEGATIVE, Ur Drug Screen Comment Assessment & Plan Assessment/Plan (1) Admitted to substance misuse detoxification center: (2) Opioid abuse: (3) Methamphetamine abuse: (4) Marijuana abuse: (5) Tobacco abuse: (6) Hypertension: QUALIFIERS: Hypertension type: primary hypertension Qualified Code(s): I10 - Essential (primary) hypertension PLAN: Plan Opioid dependence and withdrawal Urine test negative. Urine toxicology positive for amphetamines and MDMA Patient will be started on Subutex and other adjunctive medications: Gabapentin as needed; dicyclomine as needed; Vistaril as needed; methocarbamol as needed; clonidine as needed; Imodium as needed; trazodone as needed and Zofran as needed. Monitor COWS and CINA score Methamphetamine abuse Counseled Marijuana abuse Counseled Tobacco abuse Counseled Declined patch Hypertension Blood pressure is not within goal Trend BP DVT prophylaxis Low risk Encourage to ambulate Time spent in the patient's overall evaluation,decision-making process, review of diagnostic data, adjustment of management, discussion with other providers, nursing and ancillary staff involved in patient's care documentation, 70 minutes. Charges/Coding Visit Charges Inpatient E&M: 68290 Init Hosp L3
[2023-03-08 04:33] VITALS: BMI 34.3
[2023-03-08 04:45] VITALS: BP 131/69; PULSE 82; RESP 17; TEMP 36.6; O2SAT 99
[2023-03-08] MEDS: cloNIDine HCl 0.1 MG Tablet PO (05:24)
[2023-03-08] MEDS: Methocarbamol 750 MG Tablet PO ×2 (05:24→12:29)
[2023-03-08 06:19] LABS: Absolute Lymphocyte Count 1.65 X10^3/uL (0.83-4.51); Absolute Neutrophil Count 4.9 X10^3/uL (2.0-7.7); Basophil# 0.02 X10^3/uL; Basophil% 0.3 % (0-1); Eosinophil# 0.04 X10^3/uL; Eosinophils% 0.6 % (0-5); Hematocrit 36.3 % (37-47); Hemoglobin 11.7 g/dL (12.0-15.0); Lymphocyte # 1.65 X10^3/ul (0.83-4.51); Lymphocyte % 22.9 % (19-41); Mean Corp Hgb Conc 32.2 g/dL (32-36); Mean Corpuscular Hgb 29.3 pg (27.0-32.0); Mean Corpuscular Volume 90.8 fL (81-99); Mean Platelet Vol. 11.3 fl (6.2-12.0); Monocyte# 0.54 X10^3/uL; Monocyte% 7.5 % (0-10); NRBC Flagged by Analyzer 0 % (0-5); Neutrophil # 4.93 X10^3/uL (2.7-7.7); Neutrophil % 68.4 % (47-70); Platelet Count 179 K/mm3 (150-450); RBC Distribution Width CV 12.6 % (11.6-14.6); RBC Distribution Width SD 41.9 fl (35.1-43.9); White Blood Count 7.2 K/mm3 (4.4-11.0)
[2023-03-08 06:53] LABS: Alcohol, Blood (Medical)-Serum < 3.0 mg/dL
[2023-03-08 06:56] LABS: ALB/GLOB Ratio 0.8 RATIO (0.9-2.4); AST(SGOT) 20 U/L (15-37); Alanine Aminotransfer ALT/SGPT 27 U/L (13-56); Alkaline Phosphatase 97 U/L (45-117); Anion Gap 4 (5-15); BUN 10 mg/dL (7-18); BUN/Creat Ratio 13.4 RATIO (10-20); Calcium,Total 8.9 mg/dL (8.5-10.1); Chloride 104 mmol/L (98-107); Creatinine, Serum 0.74 mg/dL (0.55-1.02); EST Glomerular Filtration Rate 92 mL/min (>60); Est Glom Filt Rate - Afr Amer 112 mL/min (>60); Glucose 111 mg/dL (74-106); Potassium 3.9 mmol/L (3.5-5.1); Sodium Level 138 mmol/L (136-145)
[2023-03-08 07:01] VITALS: O2SAT 97
[2023-03-08 07:07] LABS: Internal QC Validated? YES +Cl - CLEAR BKGD; Pregnancy, Serum, hCG Quali. NEGATIVE Negative
--- NOTE | 2023-03-08 07:50 | PCM.HOSP.N ---
Hospitalist Note Patient is a 37-year-old female with history of chronic alcohol dependence admitted with acute withdrawal admitted to regular nursing floor for further management Patient seen and examined, initial assessment including history and physical diagnostic data and management orders reviewed will follow.
[2023-03-08 08:52] VITALS: BP 134/79; PULSE 64; RESP 16; TEMP 36.6; O2SAT 94
[2023-03-08] MEDS: Sertraline 50 MG Tablet PO (08:59)
[2023-03-08] MEDS: Dicyclomine 10 MG Capsule 20 MG PO (08:59)
[2023-03-08] MEDS: Ondansetron 8 MG Tablet PO (08:59)
[2023-03-08] MEDS: hydrOXYzine PAM 25 MG Capsule 50 MG PO ×2 (08:59→14:10)
--- NOTE | 2023-03-08 11:18 | ADDICTION ---
This clinical writer met with PT to conduct ASAM, MSE, AUDIT, DUDIT assessments and to plan for d/c. PT A+Ox4 and participated actively. All assessments completed and placed in PT's chart. PT plans to f/u with [facility] for follow-up outpatient treatment services on Tuesday. Pt did not identify a need for transportation.
[2023-03-08 12:22] VITALS: BP 132/73; PULSE 62; RESP 18; TEMP 36.7; O2SAT 98
[2023-03-08] MEDS: Gabapentin 300 MG Capsule PO (12:29)
[2023-03-08] MEDS: lamoTRIgine 25 MG Tablet PO (12:29)
[2023-03-08] MEDS: Buprenorphine HCl 2 MG TAB.SUBL 4 MG SL (12:31)
--- NOTE | 2023-03-08 15:38 | NURSING ---
LORENZO paperwork signed.
--- NOTE | 2023-03-08 15:47 | PCM.DC.SUM ---
Providers Date of Admission: 03/08/23 Date of Discharge: 03/08/23 Primary Care Physician: TARA Mendes Reason For Visit: DESIRE FOR DETOXIFICATION Diagnosis Discharge Diagnosis (1) Admitted to substance misuse detoxification center: Status: Acute Code(s): Z78.9 - Other specified health status (2) Opioid abuse: Status: Acute Code(s): F11.10 - Opioid abuse, uncomplicated (3) Methamphetamine abuse: Status: Acute Code(s): F15.10 - Other stimulant abuse, uncomplicated (4) Marijuana abuse: Status: Acute Code(s): F12.10 - Cannabis abuse, uncomplicated (5) Tobacco abuse: Status: Acute Code(s): Z72.0 - Tobacco use (6) Hypertension: Status: Chronic Code(s): I10 - Essential (primary) hypertension Qualifiers: Hypertension type: primary hypertension Qualified Code(s): I10 - Essential (primary) hypertension Medications at Discharge Home Medications lamotrigine 25 mg tablet 25 mg PO Q24H depression 03/08/23 sertraline 50 mg tablet 50 mg PO Q24H depression 03/08/23 valacyclovir 1 gram tablet 1,000 mg PO Q12H cold sore 03/08/23 Hospital Course Summary of Care Provided Minutes Spent on Discharge: 35 Hospital Course: Patient is a 37-year-old female with history of chronic alcohol dependence admitted with acute withdrawal admitted to regular nursing floor for further management. Patient however signed out AGAINST MEDICAL ADVICE less than a day after being admitted. Efforts made patient rescind his decision proved futile Physical Exam Narrative GENERAL: Not in distress HEENT: Atraumatic; normocephalic EYES; Anicteric, Normal Conjunctiva NECK; supple, normal thyroid, RESPIRATORY: Diminished to auscultation CARDIOVASCULAR: Regular S1 S2, GI: soft, normoactive bowel sounds, : No Renal angle tenderness; EXTREMITIES: No edema, no clubbing, MUSCULOSKELETAL: no muscle wasting NEURO: Awake; no lateralizing signs. SKIN: No Rash PSYCH; Flat affect Weight / BMI Weight Weight: 96.6 kg Body Mass Index (BMI) 34.3 ABG / Lab / Microbiology Data 03/08/23 05:40 03/08/23 05:40 Laboratory: Laboratory Results - last 24 hr 03/08/23 02:50: Urine Test Negative, Urine Opiates Screen NEGATIVE, Urine Methadone Screen NEGATIVE, Ur Barbiturates Screen NEGATIVE, Ur Phencyclidine Scrn NEGATIVE, Ur Amphetamines Screen POSITIVE H, MDMA (Ecstasy) Screen POSITIVE H, U Benzodiazepines Scrn NEGATIVE, Urine Cocaine Screen NEGATIVE, U Cannabinoids Screen NEGATIVE, Ur Drug Screen Comment 03/08/23 05:40: WBC 7.2, RBC 4.00 L, Hgb 11.7 L, Hct 36.3 L, MCV 90.8, MCH 29.3, MCHC 32.2, RDW Std Deviation 41.9, RDW Coeff of Marie 12.6, Plt Count 179, MPV 11.3, Immature Gran % (Auto) 0.300, Neut % (Auto) 68.4, Lymph % (Auto) 22.9, [place] % (Auto) 7.5, Eos % (Auto) 0.6, Baso % (Auto) 0.3, Absolute Neuts (auto) 4.9, Absolute Lymphs (auto) 1.65, Nucleated RBC % 0, Sodium 138, Potassium 3.9, Chloride 104, Carbon Dioxide 30.0, Anion Gap 4 L, BUN 10, Creatinine 0.74, Estim Creat Clear Calc 96.50, Est GFR (MDRD) Af Amer 112, Est GFR (MDRD) Non-Af 92, BUN/Creatinine Ratio 13.4, Glucose 111 H, Calcium 8.9, Total Bilirubin 0.20, AST 20, ALT 27, Alkaline Phosphatase 97, Total Protein 7.0, Albumin 3.0 L, Globulin 4.0, Albumin/Globulin Ratio 0.8 L, Serum , Qual NEGATIVE, Ethyl Alcohol < 3.0 D/C Instructions Discharge Diet: No restrictions Discharge Activity: Return to Normal Activity Call your doctor if you observe: Fever of 101 or Higher, Shortness of breath, Fainting spells and Chest pain Meaningful Use Info Meaningful Use Diagnoses (Choose all that apply): None applicable Discharge Plan Admission Admit Date/Time: 03/08/23 03:34 Attending Provider: Ewrin Iglesias Primary Care Provider: Moon Gordon NP Consulting Providers: José Navarro Discharge Orders/Prescriptions Prescriptions: No Action lamotrigine 25 mg tablet 25 mg PO Q24H Patient Comments: TAKE 1 TABLET BY MOUTH ONCE DAILY AFTER BREAKFAST sertraline 50 mg tablet 50 mg PO Q24H Patient Comments: TAKE 1 TABLET BY MOUTH ONCE DAILY AFTER BREAKFAST valacyclovir 1 gram tablet 1,000 mg PO Q12H Patient Comments: Take 1 tablet by mouth twice daily. Referrals / Follow Up: Moon Gordon NP, CHIEF CREATIVE OFFICER-C [Primary Care Provider] - Disposition Disposition (needs filled in before D/C Order can be placed): Against Medical Advice Charges/Coding Visit Charges Inpatient E&M: 05069 Disch Hosp >30min
== END 2023-03-08 15:43 | disposition left against medical advice (07) ==
LOC: ED 03:06 → MS3 04:46
PROVIDERS: Admitting Provider Hospitalist; Emergency Provider Emergency Medicine; PCP Nurse Practitioner Family; Visit Provider Internal Medicine
DX: F11.23 Opioid dependence with withdrawal (principal); F15.10 Other stimulant abuse, uncomplicated; F10.239 Alcohol dependence with withdrawal, unspecified; F39 Unspecified mood [affective] disorder; F17.210 Nicotine dependence, cigarettes, uncomplicated; I10 Essential (primary) hypertension; M79.89 Other specified soft tissue disorders; F12.10 Cannabis abuse, uncomplicated; M25.561 Pain in right knee; Z79.899 Other long term (current) drug therapy
CPT/HCPCS: 36415; 80053; 80307; 81025; 82077; 84703; 85025; 99221; 99283; G0378

== ENCOUNTER 2023-03-14 21:44 | Inpatient (IN) | payer MEDICAID, SELFPAY ==
[2023-03-14 21:45] VITALS: BP 131/95; PULSE 103; RESP 16; TEMP 35.9; O2SAT 100; BMI 31.8
[2023-03-14 22:02] LABS: Bacteria 0 SEEN /hpf (None Seen); Mucous, Urine 0 SEEN /hpf (<or=2+)
[2023-03-14 22:06] LABS: Color, Urine Yellow (Yellow); Glucose, Dipstick Normal (Normal); Ketone-Dipstick 5 mg/dl (Negative); Leukocyte Esterase-Dipstick 25 /ul (Negative); Nitrite-Dipstick Negative (Negative); Occult Blood-Urine 10 /ul (Negative); Protein-Dipstick 100 mg/dl (Negative); Specific Gravity, Urine 1.025 (1.002-1.030); Urine Clarity Sl. Cloudy (Clear); Urine Urobilinogen 1 mg/dl (Normal)
[2023-03-14 22:28] LABS: Hyaline Cast 5-10 SEEN /lpf (0-5); Red Blood Cells-Urine 0-5 SEEN /hpf (0-5); Squamous Epithelial Cells - UA 0-5 SEEN /hpf (5-10); Urine Bilirubin Dipstick 1 mg/dL (Negative); White Blood Cells 0-5 SEEN /hpf (0-5)
[2023-03-14 22:29] LABS: Amorphous Sediment 1+ URATE
[2023-03-14 22:33] LABS: Absolute Lymphocyte Count 2.83 X10^3/uL (0.83-4.51); Absolute Neutrophil Count 6.8 X10^3/uL (2.0-7.7); Basophil# 0.05 X10^3/uL; Basophil% 0.5 % (0-1); Eosinophil# 0.02 X10^3/uL; Eosinophils% 0.2 % (0-5); Hematocrit 48.6 % (37-47); Hemoglobin 16.1 g/dL (12.0-15.0); Lymphocyte # 2.83 X10^3/ul (0.83-4.51); Mean Corp Hgb Conc 33.1 g/dL (32-36); Mean Corpuscular Volume 90.5 fL (81-99); Mean Platelet Vol. 10.5 fl (6.2-12.0); Monocyte# 0.77 X10^3/uL; Monocyte% 7.3 % (0-10); NRBC Flagged by Analyzer 0 % (0-5); Neutrophil # 6.77 X10^3/uL (2.7-7.7); Neutrophil % 64.6 % (47-70); Platelet Count 262 K/mm3 (150-450); RBC Distribution Width CV 12.4 % (11.6-14.6); RBC Distribution Width SD 40.7 fl (35.1-43.9); Red Blood Count 5.37 M/mm3 (4.2-5.4); White Blood Count 10.5 K/mm3 (4.4-11.0)
[2023-03-14 22:54] LABS: Amphetamine Urine VISTA POSITIVE (<1000 ng/mL); Barbiturate Urine VISTA NEGATIVE (< 200 ng/mL); Benzodiazepine Urine VISTA NEGATIVE (< 200 ng/mL); Cocaine Urine VISTA NEGATIVE (< 300 ng/mL); Ecstacy Urine VISTA POSITIVE (< 500 ng/mL); Methadone Urine VISTA NEGATIVE (< 300 ng/mL); PCP Urine VISTA NEGATIVE (< 25 ng/mL); THC Urine VISTA POSITIVE (< 50 ng/mL); Vista UDS pH Range 6
[2023-03-14 22:54] LABS: Anion Gap 6 (5-15); BUN 15 mg/dL (7-18); BUN/Creat Ratio 15.2 RATIO (10-20); Calcium,Total 9.7 mg/dL (8.5-10.1); Chloride 107 mmol/L (98-107); Creatinine, Serum 0.98 mg/dL (0.55-1.02); EST Glomerular Filtration Rate 67 mL/min (>60); Est Glom Filt Rate - Afr Amer 81 mL/min (>60); Estimated Creatinine Clearance 72.86 ml/min; Glucose 94 mg/dL (74-106); Potassium 3.6 mmol/L (3.5-5.1); Sodium Level 135 mmol/L (136-145)
[2023-03-14 23:00] LABS: Internal QC Validated? YES +Cl - CLEAR BKGD; Pregnancy, Serum, hCG Quali. NEGATIVE Negative
[2023-03-14 23:44] VITALS: BP 131/95; PULSE 103; RESP 16; TEMP 35.9; O2SAT 100
--- NOTE | 2023-03-15 00:53 | EDS_ITS ---
HPI History of Present Illness Chief Complaint: Substance Abuse Informant: patient Narrative Narrative: 37-year-old female presenting to the emergency room requesting detoxification from polysubstance use. Patient states that she last used fentanyl on Tuesday. She has been using Suboxone from an online physician. She states that over the past several months her addiction has become out of control. She states that she has been using many different substances over the past several days in an effort to curb her opiate addiction. She is an IV drug user. She last used amphetamines yesterday. She used cannabis today. She has still been taking her Suboxone. She states that she went to court today on child custody hearing and told the distilling department supervisor that she was going to try to get into inpatient program. Currently her children are with her mother [facility] Medical History Substance abuse Home Medications lamotrigine 25 mg tablet 25 mg PO Q24H depression 03/08/23 [History Last Taken 03/06/23] sertraline 50 mg tablet 50 mg PO Q24H depression 03/08/23 [History Last Taken ] valacyclovir 1 gram tablet 1,000 mg PO Q12H cold sore 03/08/23 [History Last Taken 03/07/23] buprenorphine 8 mg-naloxone 2 mg sublingual film 2 film sublingual Q24H 03/14/23 [History Last Taken Unknown] Allergy/AdvReac Type Severity Reaction Status Date / Time No Known Allergies Allergy Verified 03/14/23 21:45 Family History Other Cancer Heart disease Surgical History delivery delivered Social History Smoking Status: Current every day smoker tobacco type: cigarettes ROS ROS ED Constitutional Constitutional ED: Denies chills or weight loss Eyes Eyes: Denies change in vision or diplopia ENT ENT ED: Denies ear pain, rhinorrhea or sore throat Cardiovascular Cardiovascular: Denies chest pain, orthopnea, palpitations or racing heartbeat Respiratory/Chest Respiratory/Chest: Denies cough, dyspnea or orthopnea Gastrointestinal Gastrointestinal: Reports nausea; Denies abdominal pain, diarrhea or vomiting Genitourinary Genitourinary ED: Denies dysuria, hematuria or urinary frequency Musculoskeletal Musculoskeletal: Denies arthralgias or myalgias Integumentary Reports other Details: Healing abscess of the left forearm ; Denies abscess or rash Neurologic Neurologic: Denies headache(s) or weakness Psychiatric Psychiatric: Denies anxiety, depression, suicidal ideation or suicidal thoughts Endocrine Endocrinology: Denies polydipsia, polyphagia or polyuria Allergic/Immunologic Allergic/Immunologic ED: Denies mouth swelling, tongue swelling or urticaria EXAM Physical Exam Narrative Exam Narrative: Patient is quite fidgety. Const Vital Signs: 03/14/23 21:45 03/14/23 23:44 Temperature 96.7 F L 96.7 F L Temperature Source Temporal Temporal Pulse Rate 103 H 103 H Respiratory Rate 16 16 Blood Pressure 131/95 H 131/95 H Blood Pressure Mean 107 107 Pulse Ox 100 100 Oxygen Delivery Method Room Air Room Air Positive well nourished and well developed General Appearance ED: well developed HEENT Reports normocephalic, head/scalp atraumatic and moist mucous membranes Eyes PERRL and EOMs intact bilaterally Neck no lymphadenopathy, supple and no JVD Resp normal respiratory effort and clear to auscultation bilaterally Cardio regular rate, regular rhythm and no murmurs Rate: tachycardic GI normal to inspection, nondistended, normoactive bowel sounds and non-tender Palpation: soft Back/Spine no CVA tenderness and normal ROM Extremity normal to inspection General Extremety ED: Negative for edema General Extremity: Negative for edema Neuro oriented x3 and CN's II-XII intact bilaterally Sensorium / Orientation: alert Motor Exam: strength 5/5 throughout Psych mental status grossly normal Mood & Affect: Negative for depressed or tearful Skin no rashes or lesions noted and no wounds MDM MDM MDM Narrative Medical decision making narrative: Addiction labs were obtained. White count 10.5 hemoglobin 16.1. BMP negative. test is negative. Analysis showed no overt infection. Urine toxicology was positive for MDMA, amphetamines and cannabis. I will speak with the hospitalist Lab Data Attestation: I reviewed the patient's lab results. Labs: Laboratory Results - last 24 hr 03/14/23 03/14/23 03/14/23 20:20 21:50 22:20 WBC 10.5 RBC 5.37 Hgb 16.1 H Hct 48.6 H MCV 90.5 MCH 30.0 MCHC 33.1 RDW Std Deviation 40.7 RDW Coeff of Marie 12.4 Plt Count 262 MPV 10.5 Immature Gran % (Auto) 0.400 Neut % (Auto) 64.6 Lymph % (Auto) 27.0 [place] % (Auto) 7.3 Eos % (Auto) 0.2 Baso % (Auto) 0.5 Absolute Neuts (auto) 6.8 Absolute Lymphs (auto) 2.83 Nucleated RBC % 0 Sodium 135 L Potassium 3.6 Chloride 107 Carbon Dioxide 22.0 Anion Gap 6 BUN 15 Creatinine 0.98 Estim Creat Clear Calc 72.86 Est GFR (MDRD) Af Amer 81 Est GFR (MDRD) Non-Af 67 BUN/Creatinine Ratio 15.2 Glucose 94 Calcium 9.7 Serum , Qual NEGATIVE Urine Color Yellow Urine Clarity Sl. Cloudy Urine pH 5.0 Ur Specific [place] 1.025 Urine Protein 100 H Urine Glucose (UA) Normal Urine Ketones 5 H Urine Occult Blood 10 H Urine Nitrite Negative Urine Bilirubin 1 H Urine Urobilinogen 1 H Ur Leukocyte Esterase 25 H Urine RBC 0-5 SEEN Urine WBC 0-5 SEEN Ur Squamous Epith Cells 0-5 SEEN Amorphous Sediment 1+ URATE Urine Bacteria 0 SEEN Hyaline Casts 5-10 SEEN Urine Mucus 0 SEEN Urine Opiates Screen NEGATIVE Urine Methadone Screen NEGATIVE Ur Barbiturates Screen NEGATIVE Ur Phencyclidine Scrn NEGATIVE Ur Amphetamines Screen POSITIVE H MDMA (Ecstasy) Screen POSITIVE H U Benzodiazepines Scrn NEGATIVE Urine Cocaine Screen NEGATIVE U Cannabinoids Screen POSITIVE H Ur Drug Screen Comment Discharge Plan Triage Chief Complaint: Substance Abuse ED Provider: Raymond Kelsey Dx/Rx/DC Orders Clinical Impression: Opiate abuse, continuous, Polysubstance abuse Prescriptions: No Action buprenorphine-naloxone 8-2 mg film 2 film sublingual Q24H Patient Comments: DISSOLVE 2 (TWO) filmstrips UNDER THE TONGUE DAILY DIRECTED FOR 30 DAYS lamotrigine 25 mg tablet 25 mg PO Q24H Patient Comments: TAKE 1 TABLET BY MOUTH ONCE DAILY AFTER BREAKFAST sertraline 50 mg tablet 50 mg PO Q24H Patient Comments: TAKE 1 TABLET BY MOUTH ONCE DAILY AFTER BREAKFAST valacyclovir 1 gram tablet 1,000 mg PO Q12H Patient Comments: Take 1 tablet by mouth twice daily. Primary Care Provider: Moon Gordon NP Referrals: Moon Gordon NP, CREATIVE SERVICES DESIGNER-C [Primary Care Provider] - Disposition Disposition: Acute Care Hospital [facility]
--- NOTE | 2023-03-15 01:29 | HP.PCM.HOS_ITS ---
[facility] - General General Date of Admission: 03/15/23 Date of Service: 03/15/23 Chief Complaint: Acute opioid withdrawal syndrome. HPI Narrative JOHN PATINO, is a 37 F with chronic history of IVDA, polysubstance use came to ED for acute opioid withdrawal syndrome. Patient is having restlessness, feeling generalized pain all over the body, almost tossing on the bed. She had fentanyl use on Tuesday. She also uses multiple different formulations of opioids including fentanyl, heroin, oxycodone Percocet basically she states she uses everything or anything what ever she can get it. She also has history of using methamphetamine and crack cocaine and ecstasy. She smokes cigarettes 1 pack/day. Denies use of bath salt. History of hepatitis C and is stated she was treated with Mavyret. She wants to get admitted for medical stabilization of acute opioid withdrawal withdrawal. [facility] Medical History Substance abuse Home Medications lamotrigine 25 mg tablet 25 mg PO Q24H depression 03/08/23 [History Last Taken 03/06/23] sertraline 50 mg tablet 50 mg PO Q24H depression 03/08/23 [History Last Taken 03/06/23] valacyclovir 1 gram tablet 1,000 mg PO Q12H cold sore 03/08/23 [History Last Taken 03/07/23] buprenorphine 8 mg-naloxone 2 mg sublingual film 2 film sublingual Q24H 03/14/23 [History Last Taken Unknown] Allergy/AdvReac Type Severity Reaction Status Date / Time No Known Allergies Allergy Verified 03/14/23 21:45 Family History Other Cancer Heart disease Surgical History delivery delivered Social History Smoking Status: Current every day smoker tobacco type: cigarettes ROS ROS Narrative Constitutional: Reports fatigue and weakness. No fever. Generalized aches and pain HEENT: Reports systems reviewed and no addt'l complaints, except as documented Respiratory/Chest: No acute shortness of breath or respiratory distress or wheezing. CVS: No chest pain or pressure. Gastrointestinal: Denies coffee ground emesis, hematemesis or vomiting Genitourinary: Denies burning urination or new urinary tract symptoms Musculoskeletal: Generalized muscle pain. Tremors. No acute injury. Neurologic: Denies seizure-like symptoms. No acute or strokelike symptoms. skin: Needle felipa over both arms. Endocrinology: Reports systems reviewed and no addt'l complaints, except as documented Hematologic/Lymphatic: Reports systems reviewed and no addt'l complaints, except as documented Rest 14 ROS are negative except as mentioned in HPI Vital Signs Vital Signs Vital Signs: 03/14/23 21:45 03/14/23 23:44 Temperature 96.7 F L 96.7 F L Temperature Source Temporal Temporal Pulse Rate 103 H 103 H Respiratory Rate 16 16 Blood Pressure 131/95 H 131/95 H Blood Pressure Mean 107 107 Pulse Ox 100 100 Oxygen Delivery Method Room Air Room Air Weight Weight: 197 lb Body Mass Index (BMI) 31.8 Physical Exam Narrative General: Awake but restless oriented x3, Cooperative HEENT: Atraumatic, PERRLA, EOMI, Normocephalic Oral: Oral mucosa dry no Gingival or Mucosal Lesions/ Ulcerations Neck: Supple, No JVD, Negative Carotid Bruits Lungs: Air entry diminished in bilateral lung bases. No crepitation/rhonchi Cardiovascular: Regular rate, Regular Rhythm, Normal S1, Normal S2, No murmurs Abdomen: Bowel Sounds Present, Soft, Non Tender, Non-Distended : No renal angle tenderness. No suprapubic tenderness. Extremities: No edema, Capillary Refill Less than 3 Seconds Skin: No ulcer but needle track cash over both arms. Musculoskeletal: No Tenderness to Palpation of Joints or Extremities Neurological: Cranial nerves II-XII grossly intact, DTR 2+/4. No acute focal neurological deficit. Psych/Mental Status: Anxiety attack, restless, history of depression. Results Lab / Micro Data 03/14/23 20:20 03/14/23 22:20 Labs: Laboratory Results - last 24 hr 03/14/23 20:20: WBC 10.5, RBC 5.37, Hgb 16.1 H, Hct 48.6 H, MCV 90.5, MCH 30.0, MCHC 33.1, RDW Std Deviation 40.7, RDW Coeff of Marie 12.4, Plt Count 262, MPV 10.5, Immature Gran % (Auto) 0.400, Neut % (Auto) 64.6, Lymph % (Auto) 27.0, [place] % (Auto) 7.3, Eos % (Auto) 0.2, Baso % (Auto) 0.5, Absolute Neuts (auto) 6.8, Absolute Lymphs (auto) 2.83, Nucleated RBC % 0 03/14/23 21:50: Urine Color Yellow, Urine Clarity Sl. Cloudy, Urine pH 5.0, Ur Specific [place] 1.025, Urine Protein 100 H, Urine Glucose (UA) Normal, Urine Ketones 5 H, Urine Occult Blood 10 H, Urine Nitrite Negative, Urine Bilirubin 1 H, Urine Urobilinogen 1 H, Ur Leukocyte Esterase 25 H, Urine RBC 0-5 SEEN, Urine WBC 0-5 SEEN, Ur Squamous Epith Cells 0-5 SEEN, Amorphous Sediment 1+ URATE, Urine Bacteria 0 SEEN, Hyaline Casts 5-10 SEEN, Urine Mucus 0 SEEN, Urine Opiates Screen NEGATIVE, Urine Methadone Screen NEGATIVE, Ur Barbiturates Screen NEGATIVE, Ur Phencyclidine Scrn NEGATIVE, Ur Amphetamines Screen POSITIVE H, MDMA (Ecstasy) Screen POSITIVE H, U Benzodiazepines Scrn NEGATIVE, Urine Cocaine Screen NEGATIVE, U Cannabinoids Screen POSITIVE H, Ur Drug Screen Comment 03/14/23 22:20: Sodium 135 L, Potassium 3.6, Chloride 107, Carbon Dioxide 22.0, Anion Gap 6, BUN 15, Creatinine 0.98, Estim Creat Clear Calc 72.86, Est GFR (MDRD) Af Amer 81, Est GFR (MDRD) Non-Af 67, BUN/Creatinine Ratio 15.2, Glucose 94, Calcium 9.7, Serum , Qual NEGATIVE Assessment & Plan Assessment/Plan (1) Acute hyperactive opioid withdrawal delirium: PLAN: Plan 1. Acute opioid withdrawal syndrome with history of chronic opioid use, dependence and relapse: The patient is being admitted to floor. Patient was las t admitted on 03/08/2023 and she signed AMA on the same day. This time she wants to stay. The patient is started on buprenorphine along with other adjunctive medications as needed for medical stabilization as per order set of opioid withdrawal syndrome.Patient also on trazodone, hydroxyzine, gabapentin as needed ordered. Advised quitting opioid use. income tax manager consult. 2. Polysubstance use including methamphetamine and crack cocaine: Currently patient is not having any chest pain. 3. Patient also uses ecstasy, marijuana and cigarette smoking, nicotine use disorder and dependence: On nicotine patch. 4. History of hepatitis C which was treated with Mavyret: Patient states he tested hepatitis C negative about a month ago. 5. Anxiety, depression and personality disorder: Advised to follow-up with counselor and psychiatrist. DVT prophylaxis: Low risk. On ambulation encouraged. Charges/Coding Visit Charges Inpatient E&M: 75535 Init Hosp L3
[2023-03-15 04:19] VITALS: BMI 31.8
[2023-03-15 04:52] VITALS: BP 120/70; PULSE 69; RESP 18; TEMP 36.5; O2SAT 100
[2023-03-15] MEDS: Acyclovir 200 MG Capsule 400 MG PO ×3 (05:09→22:00)
[2023-03-15] MEDS: Sertraline 50 MG Tablet PO (05:09)
--- NOTE | 2023-03-15 07:48 | PCM.PN.HOSP ---
Reason for Visit Reason for Visit: Diagnoses Opioid use, unspecified with withdrawal (03/15/23) Subjective Subjective Feels unwell. Willing to stay this time to receive treatment (left AMA last week). Objective Data Objective Data Vital Signs: Vital Signs Temp Pulse Resp BP Pulse Ox O2 Del Method 36.5 C L 69 18 120/70 100 Room Air 03/15/23 04:52 03/15/23 04:52 03/15/23 04:52 03/15/23 04:52 03/15/23 04:52 03/15/23 04:52 Oxygen Delivery Method Room Air Weight: 89.36 kg Body Mass Index (BMI) 31.8 Lab / Micro Data 03/14/23 20:20 03/14/23 22:20 Labs: Laboratory Results - last 24 hr 03/14/23 20:20: WBC 10.5, RBC 5.37, Hgb 16.1 H, Hct 48.6 H, MCV 90.5, MCH 30.0, MCHC 33.1, RDW Std Deviation 40.7, RDW Coeff of Marie 12.4, Plt Count 262, MPV 10.5, Immature Gran % (Auto) 0.400, Neut % (Auto) 64.6, Lymph % (Auto) 27.0, [place] % (Auto) 7.3, Eos % (Auto) 0.2, Baso % (Auto) 0.5, Absolute Neuts (auto) 6.8, Absolute Lymphs (auto) 2.83, Nucleated RBC % 0 03/14/23 21:50: Urine Color Yellow, Urine Clarity Sl. Cloudy, Urine pH 5.0, Ur Specific [place] 1.025, Urine Protein 100 H, Urine Glucose (UA) Normal, Urine Ketones 5 H, Urine Occult Blood 10 H, Urine Nitrite Negative, Urine Bilirubin 1 H, Urine Urobilinogen 1 H, Ur Leukocyte Esterase 25 H, Urine RBC 0-5 SEEN, Urine WBC 0-5 SEEN, Ur Squamous Epith Cells 0-5 SEEN, Amorphous Sediment 1+ URATE, Urine Bacteria 0 SEEN, Hyaline Casts 5-10 SEEN, Urine Mucus 0 SEEN, Urine Opiates Screen NEGATIVE, Urine Methadone Screen NEGATIVE, Ur Barbiturates Screen NEGATIVE, Ur Phencyclidine Scrn NEGATIVE, Ur Amphetamines Screen POSITIVE H, MDMA (Ecstasy) Screen POSITIVE H, U Benzodiazepines Scrn NEGATIVE, Urine Cocaine Screen NEGATIVE, U Cannabinoids Screen POSITIVE H, Ur Drug Screen Comment 03/14/23 22:20: Sodium 135 L, Potassium 3.6, Chloride 107, Carbon Dioxide 22.0, Anion Gap 6, BUN 15, Creatinine 0.98, Estim Creat Clear Calc 72.86, Est GFR (MDRD) Af Amer 81, Est GFR (MDRD) Non-Af 67, BUN/Creatinine Ratio 15.2, Glucose 94, Calcium 9.7, Serum , Qual NEGATIVE Physical Exam Const alert and no apparent distress Constitutional Narrative: uncomfortable. HEENT head/scalp atraumatic Resp normal respiratory effort, no retractions, no use of accessory muscles and clear to auscultation bilaterally Cardio regular rate, regular rhythm, S1 normal heart sound and S2 normal heart sound GI normal to inspection, nondistended, normoactive bowel sounds, soft to palpation, non-tender and non-distended Assessment & Plan Assessment/Plan (1) Acute hyperactive opioid withdrawal delirium: PLAN: Acute opioid withdrawal syndrome with history of chronic opioid use, dependence and relapse: The patient is being admitted to floor. Patient was last admitted on 03/08/2023 and she signed AMA on the same day. This time she wants to stay. The patient is started on buprenorphine along with other adjunctive medications as needed for medical stabilization as per order set of opioid withdrawal syndrome.Patient also on trazodone, hydroxyzine, gabapentin as needed ordered. Advised quitting opioid use. associate property manager consult. Polysubstance use including methamphetamine and crack cocaine, MDMA, marijuana: complicates long-term recovery. PLAN: Plan Chronic conditions: History of hepatitis C which was treated with Mavyret: Patient states he tested hepatitis C negative about a month ago. Anxiety, depression and personality disorder: Advised to follow-up with counselor and psychiatrist. tobacco abuse: nicotine patch DVT prophylaxis: Low risk. On ambulation encouraged. Charges/Coding Visit Charges Inpatient E&M: 00216 Subs Hosp L2
[2023-03-15 09:15] VITALS: BP 124/73; PULSE 63; RESP 18; TEMP 36.9; O2SAT 98
[2023-03-15] MEDS: cloNIDine HCl 0.1 MG Tablet PO ×2 (09:24→22:19)
[2023-03-15] MEDS: Ondansetron 8 MG Tablet PO (09:24)
[2023-03-15] MEDS: hydrOXYzine PAM 25 MG Capsule 50 MG PO ×3 (09:24→22:03)
[2023-03-15] MEDS: lamoTRIgine 25 MG Tablet PO (09:24)
[2023-03-15] MEDS: Buprenorphine HCl 2 MG TAB.SUBL SL ×2 (09:49→18:22)
--- NOTE | 2023-03-15 13:51 | ADDICTION ---
This commercial lines underwriter met with PT to conduct ASAM, MSE, AUDIT, DUDIT assessments and to plan for d/c. PT A+Ox4 and participated actively. All assessments completed and placed in PT's chart. PT plans to f/u with [facility] at [facility] for follow-up in patient treatment services if approved on or Tuesday, depending on symptoms. [facility] will transport to treatment.
[2023-03-15] MEDS: Gabapentin 300 MG Capsule PO ×2 (14:29→22:00)
--- NOTE | 2023-03-15 15:01 | CHAPLAIN ---
Type of Pastoral Visit ___ Initial Visit ___ Follow-up Visit ___ On-call Visit ___ General Patient Visit ___ Spiritual Assessment ___ Family Conference ___ Bereavement ___ Rapid Response ___ Code Blue ___ Other (describe below) Pastoral Care Referral From ___ Patient ___ Family ___ Nurse ___ Physician ___ Business Process Coordinator ___ Brewery Representative ___ Other (describe below) Sacrament/Intervention ___ Active listening ___ Anointing ___ Amish ___ Bereavement ___ Communion ___ [place]ia exploration ___ ___ Life review ___ Prayer ___ Reconciliation ___ Sacrament of Sick ___ Supportive presence ___ Wedding ___ Other (describe below) Pastoral Comments patient is trying to rest and asks if she can just get some sleep for now
[2023-03-15 15:31] VITALS: BP 133/73; PULSE 60; RESP 16; TEMP 36.6; O2SAT 97
[2023-03-15] MEDS: Methocarbamol 750 MG Tablet PO ×2 (15:36→21:59)
[2023-03-15] MEDS: Dicyclomine 10 MG Capsule 20 MG PO (15:36)
[2023-03-15 18:26] VITALS: BP 121/70; PULSE 52; RESP 15; TEMP 36.6; O2SAT 97
[2023-03-15] MEDS: Ibuprofen 600 MG Tablet PO (21:59)
[2023-03-15] MEDS: Loperamide 2 MG Capsule PO (21:59)
[2023-03-15] MEDS: traZODone 100 MG Tablet PO (22:00)
[2023-03-15 22:10] VITALS: BP 128/77; PULSE 70; RESP 18; TEMP 36.7; O2SAT 100
[2023-03-16] MEDS: Buprenorphine HCl 2 MG TAB.SUBL SL ×3 (02:03→17:48)
[2023-03-16 04:16] VITALS: BP 104/60; PULSE 68; RESP 16; TEMP 36.8; O2SAT 98
[2023-03-16] MEDS: Sertraline 50 MG Tablet PO (05:22)
[2023-03-16] MEDS: Acyclovir 200 MG Capsule 400 MG PO ×3 (05:23→22:16)
[2023-03-16] MEDS: Acetaminophen 500 MG Tablet PO (05:28)
[2023-03-16] MEDS: hydrOXYzine PAM 25 MG Capsule 50 MG PO ×2 (05:28→17:48)
[2023-03-16] MEDS: Methocarbamol 750 MG Tablet PO ×3 (05:28→22:16)
[2023-03-16] MEDS: Gabapentin 300 MG Capsule PO ×3 (05:33→22:16)
[2023-03-16] MEDS: cloNIDine HCl 0.1 MG Tablet PO ×2 (06:07→17:48)
[2023-03-16] MEDS: Ondansetron 8 MG Tablet PO ×2 (06:07→22:16)
--- NOTE | 2023-03-16 07:44 | PN.HOSP_ITS ---
Reason for Visit Reason for Visit: Diagnoses Opioid use, unspecified with withdrawal (03/15/23) Subjective Subjective Skill unwell. Objective Data Objective Data Vital Signs: Vital Signs Temp Pulse Resp BP Pulse Ox O2 Del Method 36.8 C 68 16 104/60 98 Room Air 03/16/23 04:16 03/16/23 04:16 03/16/23 04:16 03/16/23 04:16 03/16/23 04:16 03/16/23 04:16 Oxygen Delivery Method Room Air Weight: 89.4 kg Body Mass Index (BMI) 31.8 Intake & Output: Intake and Output for Last 24 Hours 03/14/23 03/15/23 03/16/23 23:59 23:59 23:59 Intake Total 1000 / 1000 240 / 240 Balance 1000 / 1000 240 / 240 Lab / Micro Data 03/14/23 20:20 03/14/23 22:20 Physical Exam Const alert Constitutional Narrative: appears well. HEENT head/scalp atraumatic and moist oral mucous membranes Neuro Sensorium / Orientation: awake and alert Assessment & Plan Assessment/Plan (1) Acute hyperactive opioid withdrawal delirium: PLAN: Acute opioid withdrawal syndrome with history of chronic opioid use, dependence and relapse: The patient is being admitted to floor. Patient was last admitted on 03/08/2023 and she signed AMA on the same day. This time she wants to stay. The patient is started on buprenorphine along with other adjunctive medications as needed for medical stabilization as per order set of opioid withdrawal syndrome.Patient also on trazodone, hydroxyzine, gabapentin as needed ordered. Advised quitting opioid use. business records manager consult. Polysubstance use including methamphetamine and crack cocaine, MDMA, marijuana: complicates long-term recovery. PLAN: Plan Chronic conditions: * History of hepatitis C which was treated with Mavyret: Patient states he tested hepatitis C negative about a month ago. * Anxiety, depression and personality disorder: Advised to follow-up with counselor and psychiatrist. * tobacco abuse: nicotine patch DVT prophylaxis: Low risk. On ambulation encouraged. Charges/Coding Visit Charges Inpatient E&M: 53327 [facility] Hosp L1
[2023-03-16 08:29] VITALS: BP 97/57; PULSE 60; RESP 16; TEMP 37.1; O2SAT 99
[2023-03-16] MEDS: lamoTRIgine 25 MG Tablet PO (09:45)
--- NOTE | 2023-03-16 12:57 | CHAPLAIN ---
Type of Pastoral Visit _x__ Initial Visit ___ Follow-up Visit ___ On-call Visit ___ General Patient Visit ___ Spiritual Assessment ___ Family Conference ___ Bereavement ___ Rapid Response ___ Code Blue ___ Other (describe below) Pastoral Care Referral From _x__ Patient ___ Family ___ Nurse ___ Physician ___ Petroleum Engineering Professor ___ Painter Rough ___ Other (describe below) Sacrament/Intervention ___ Active listening ___ Anointing ___ Worship ___ Bereavement ___ Communion ___ [place] exploration ___ ___ Life review _x__ Prayer ___ Reconciliation ___ Sacrament of Sick _x__ Supportive presence ___ Wedding ___ Other (describe below) Pastoral Comments
[2023-03-16 13:15] VITALS: BP 100/62; PULSE 68; RESP 18; TEMP 36.7; O2SAT 99
[2023-03-16 17:45] VITALS: BP 113/60; PULSE 71; RESP 18; TEMP 36.7; O2SAT 100
[2023-03-16 22:01] VITALS: BP 105/67; PULSE 65; RESP 18; TEMP 36.7; O2SAT 99
[2023-03-16] MEDS: Ibuprofen 600 MG Tablet PO (22:16)
[2023-03-16] MEDS: traZODone 100 MG Tablet PO (22:16)
[2023-03-16] MEDS: Dicyclomine 10 MG Capsule 20 MG PO (22:16)
[2023-03-17 03:52] VITALS: BP 110/60; PULSE 73; RESP 16; TEMP 36.3; O2SAT 100
[2023-03-17] MEDS: Buprenorphine HCl 2 MG TAB.SUBL SL ×3 (03:56→23:17)
[2023-03-17] MEDS: Sertraline 50 MG Tablet PO (05:46)
[2023-03-17] MEDS: Acyclovir 200 MG Capsule 400 MG PO ×3 (05:46→23:17)
--- NOTE | 2023-03-17 08:43 | PCM.PN.HOSP ---
Reason for Visit Reason for Visit: Diagnoses Opioid use, unspecified with withdrawal (03/15/23) Subjective Subjective Feels better. Objective Data Objective Data Vital Signs: Vital Signs Temp Pulse Resp BP Pulse Ox O2 Del Method 36.3 C L 73 16 110/60 100 Room Air 03/17/23 03:52 03/17/23 03:52 03/17/23 03:52 03/17/23 03:52 03/17/23 03:52 03/17/23 03:52 Oxygen Delivery Method Room Air Weight: 89.4 kg Body Mass Index (BMI) 31.8 Intake & Output: Intake and Output for Last 24 Hours 03/15/23 03/16/23 03/17/23 23:59 23:59 23:59 Intake Total 1000 / 1000 1040 / 1040 1000 / 1000 Balance 1000 / 1000 1040 / 1040 1000 / 1000 Lab / Micro Data 03/14/23 20:20 03/14/23 22:20 Physical Exam Const alert and no apparent distress Constitutional Narrative: appears more comfortable. Neuro Sensorium / Orientation: awake and alert Assessment & Plan Assessment/Plan (1) Acute hyperactive opioid withdrawal delirium: PLAN: Acute opioid withdrawal syndrome with history of chronic opioid use, dependence and relapse: The patient is being admitted to floor. Patient was last admitted on 03/08/2023 and she signed AMA on the same day. This time she wants to stay. The patient is started on buprenorphine along with other adjunctive medications as needed for medical stabilization as per order set of opioid withdrawal syndrome.Patient also on trazodone, hydroxyzine, gabapentin as needed ordered. Advised quitting opioid use. training project manager consult. Polysubstance use including methamphetamine and crack cocaine, MDMA, marijuana: complicates long-term recovery. Plan to follow up with [facility] inpatient treatment program. Anticipate discharge 03/18. PLAN: Plan Chronic conditions: History of hepatitis C which was treated with Mavyret: Patient states he tested hepatitis C negative about a month ago. Anxiety, depression and personality disorder: Advised to follow-up with counselor and psychiatrist. tobacco abuse: nicotine patch DVT prophylaxis: Low risk. On ambulation encouraged. Charges/Coding Visit Charges Inpatient E&M: 82107 [facility] Hosp L1
[2023-03-17 10:10] VITALS: BP 109/61; PULSE 74; RESP 18; TEMP 36.3; O2SAT 98
[2023-03-17] MEDS: lamoTRIgine 25 MG Tablet PO (10:13)
[2023-03-17] MEDS: Ibuprofen 600 MG Tablet PO (10:20)
[2023-03-17] MEDS: Methocarbamol 750 MG Tablet PO ×2 (10:20→23:28)
[2023-03-17] MEDS: Ondansetron 8 MG Tablet PO (10:20)
[2023-03-17] MEDS: hydrOXYzine PAM 25 MG Capsule 50 MG PO (10:20)
[2023-03-17 14:52] VITALS: BP 107/54; PULSE 68; RESP 18; TEMP 36.7; O2SAT 97
[2023-03-17] MEDS: Gabapentin 300 MG Capsule PO (14:57)
[2023-03-17 23:14] VITALS: BP 125/62; PULSE 73; RESP 16; TEMP 36.8; O2SAT 98
[2023-03-17] MEDS: cloNIDine HCl 0.1 MG Tablet PO (23:28)
[2023-03-18 03:45] VITALS: BP 105/64; PULSE 68; RESP 18; TEMP 36.8; O2SAT 96
[2023-03-18] MEDS: hydrOXYzine PAM 25 MG Capsule 50 MG PO (03:48)
[2023-03-18] MEDS: Sertraline 50 MG Tablet PO (03:48)
[2023-03-18] MEDS: Ibuprofen 600 MG Tablet PO ×2 (03:48→11:55)
[2023-03-18] MEDS: Acyclovir 200 MG Capsule 400 MG PO (05:42)
[2023-03-18 08:57] VITALS: BP 110/65; PULSE 63; RESP 18; TEMP 36.9; O2SAT 97
[2023-03-18] MEDS: Acetaminophen 500 MG Tablet PO (09:02)
[2023-03-18] MEDS: Dicyclomine 10 MG Capsule 20 MG PO (09:03)
[2023-03-18] MEDS: cloNIDine HCl 0.1 MG Tablet PO (09:03)
[2023-03-18] MEDS: Gabapentin 300 MG Capsule PO (09:03)
[2023-03-18] MEDS: lamoTRIgine 25 MG Tablet PO (09:04)
--- NOTE | 2023-03-18 10:44 | PCM.DC.SUM ---
Providers Date of Admission: 03/15/23 Primary Care Physician: Moon Gordon, [employer] ASSOCIATE-C Reason For Visit: OPOID USE WITHDRAWAL, FENTANYL Diagnosis Discharge Diagnosis (1) Acute hyperactive opioid withdrawal delirium: Status: Acute Code(s): F11.93 - Opioid use, unspecified with withdrawal Plan: Acute opioid withdrawal syndrome with history of chronic opioid use, dependence and relapse: The patient is being admitted to floor. Patient was last admitted on 03/08/2023 and she signed AMA on the same day. This time she wants to stay. The patient is started on buprenorphine along with other adjunctive medications as needed for medical stabilization as per order set of opioid withdrawal syndrome.Patient also on trazodone, hydroxyzine, gabapentin as needed ordered. Advised quitting opioid use. food production manager consult. Polysubstance use including methamphetamine and crack cocaine, MDMA, marijuana: complicates long-term recovery. Plan to follow up with [facility] inpatient treatment program. Anticipate discharge 03/18. Plan Chronic conditions: History of hepatitis C which was treated with Mavyret: Patient states he tested hepatitis C negative about a month ago. Anxiety, depression and personality disorder: Advised to follow-up with counselor and psychiatrist. tobacco abuse: nicotine patch DVT prophylaxis: Low risk. On ambulation encouraged. Medications at Discharge Home Medications lamotrigine 25 mg tablet 25 mg PO Q24H depression 03/08/23 sertraline 50 mg tablet 50 mg PO Q24H depression 03/08/23 valacyclovir 1 gram tablet 1,000 mg PO Q12H cold sore 03/08/23 Hospital Course Operations None Procedures None Summary of Care Provided Minutes Spent on Discharge: 28 Hospital Course: Patient presents with opiate withdrawal. Patient was started on buprenorphine taper. Patient continued to feel unwell. Unclear if this is actually actual opiate withdrawal. At home, patient does have a prescription for buprenorphine naloxone. Patient has been receiving that her last prescription was on February 22. Is unclear if the patient is misusing it or diverting it. Patient to go to inpatient rehab at [facility]. Patient uses multiple substances and is high risk for failure with sobriety unless she completed by is an incompletely eradicates all other substances. Physical Exam Const alert Constitutional Narrative: appears ill. restless. Weight / BMI Weight Weight: 89.4 kg Body Mass Index (BMI) 31.8 ABG / Lab / Microbiology Data 03/14/23 20:20 03/14/23 22:20 D/C Instructions Discharge Diet: No restrictions Meaningful Use Info Meaningful Use Diagnoses (Choose all that apply): None applicable Discharge Plan Admission Admit Date/Time: 03/15/23 01:27 Primary Reason for Your Visit: opiate withdrawal. Attending Provider: Steve Lipscomb Primary Care Provider: Moon Gordon NP Consulting Providers: Martin Rios Discharge Orders/Prescriptions Prescriptions: Continued lamotrigine 25 mg tablet 25 mg PO Q24H Patient Comments: TAKE 1 TABLET BY MOUTH ONCE DAILY AFTER BREAKFAST sertraline 50 mg tablet 50 mg PO Q24H Patient Comments: TAKE 1 TABLET BY MOUTH ONCE DAILY AFTER BREAKFAST valacyclovir 1 gram tablet 1,000 mg PO Q12H Patient Comments: Take 1 tablet by mouth twice daily. Discontinued buprenorphine-naloxone 8-2 mg film 2 film sublingual Q24H Patient Comments: DISSOLVE 2 (TWO) filmstrips UNDER THE TONGUE DAILY DIRECTED FOR 30 DAYS Referrals / Follow Up: Moon Gordon NP, [employer] ASSOCIATE-C [Primary Care Provider] - Disposition Disposition (needs filled in before D/C Order can be placed): Home, Self Care Charges/Coding Visit Charges Inpatient E&M: 15998 [facility]
== END 2023-03-18 12:15 | disposition home or self-care (01) | DRG 773 ==
LOC: ED 03-15 00:56 → MS3 03-15 01:36
PROVIDERS: Admitting Provider Internal Medicine; Emergency Provider Emergency Medicine; PCP Nurse Practitioner Family
DX: F11.23 Opioid dependence with withdrawal (principal); F12.90 Cannabis use, unspecified, uncomplicated; F32.A Depression, unspecified; F15.90 Other stimulant use, unspecified, uncomplicated; F41.9 Anxiety disorder, unspecified; F17.210 Nicotine dependence, cigarettes, uncomplicated; Z79.899 Other long term (current) drug therapy
CPT/HCPCS: 36415; 80048; 80307; 81001; 84703; 85025; 97802; 99283